=== PATIENT | female | born 1955 | race Caucasian/White ===

== ENCOUNTER 2020-05-21 09:05 | Outpatient (CLI) | payer MEDICARE, SELFPAY ==
--- NOTE | 2020-05-21 11:30 | NEURO_ITS ---
Impression: # Known diabetic complains of numbness of toes, particularly left big toe. # Fairly normal nerve conduction studies except left superficial peroneal nerve absent response. # Normal needle/EMG exam. # Clinical correlation recommended. Nerve Conduction Studies Anti Sensory Summary Table Stim Site NR Peak (ms) P-T Amp (?V) Site1 Site2 Delta-P (ms) Dist (cm) Jose (m/s) Left Sup Fibular Anti Sensory (Ant Lat Mall) NO RESPONSE 14 cm NR 14 cm Ant Lat Mall 16.0 Right Sup Fibular Anti Sensory (Ant Lat Mall) 14 cm 3.6 6.6 14 cm Ant Lat Mall 3.6 16.0 44 Left Sural Anti Sensory (Lat Mall) Calf 3.9 11.9 Calf Lat Mall 3.9 16.0 41 Right Sural Anti Sensory (Lat Mall) Calf 4.0 5.5 Calf Lat Mall 4.0 16.0 40 Motor Summary Table Stim Site NR Onset (ms) O-P Amp (mV) Site1 Site2 Delta-0 (ms) Dist (cm) Jose (m/s) Left Peroneal Motor (Vastus Med) Ankle 4.0 3.0 Popit Ankle 8.9 39.0 44 Popit 12.9 3.2 Right Peroneal Motor (Vastus Med) Ankle 4.0 4.2 Popit Ankle 8.7 38.0 44 Popit 12.7 3.8 Left Tibial Motor (Abd Lott Brev) Ankle 4.5 2.0 Knee Ankle 9.3 42.0 45 Knee 13.8 1.4 Right Tibial Motor (Abd Lott Brev) Ankle 4.3 7.3 Knee Ankle 10.5 42.0 40 Knee 14.8 5.1 F Wave Studies NR F-Lat (ms) L-R F-Lat (ms) Left Peroneal (Mrkrs) (EDB) 52.18 0.59 Right Peroneal (Mrkrs) (EDB) 52.77 0.59 Left Tibial (Mrkrs) (Abd Hallucis) 53.72 0.15 Right Tibial (Mrkrs) (Abd Hallucis) 53.57 0.15 EMG Side Muscle Nerve Root Ins Act Fibs Amp Dur Recrt Comment Right AntTibialis Dp Br Fibular L4-5 Nml Nml Nml Nml Nml Right Gastroc Tibial S1-2 Nml Nml Nml Nml Nml Right Fibularis Long Sup Br Fibular L5-S1 Nml Nml Nml Nml Nml Right Flex Dig Long Tibial L5-S2 Nml Nml Nml Nml Nml Right Ext Dig Brev Dp Br Fibular L5, S1 Nml Nml Nml Nml Nml Left AntTibialis Dp Br Fibular L4-5 Nml Nml Nml Nml Nml Left Gastroc Tibial S1-2 Nml Nml Nml Nml Nml Left Fibularis Long Sup Br Fibular L5-S1 Nml Nml Nml Nml Nml Left Flex Dig Long Tibial L5-S2 Nml Nml Nml Nml Nml Left Ext Dig Brev Dp Br Fibular L5, S1 Nml Nml Nml Nml Nml MTDD
== END 2020-05-21 09:06 | disposition home or self-care (01) ==
PROVIDERS: PCP Internal Medicine; Visit Provider Internal Medicine
DX: R20.2 Paresthesia of skin (principal)
CPT/HCPCS: 95886; 95910

== ENCOUNTER 2020-06-18 12:10 | Emergency (ER) | payer MEDICARE, SELFPAY ==
--- NOTE | ~2020-06-18 | XR_ITS ---
XR chest 2V DATE: 06/18/2020 12:46 INDICATION: Chest pain TECHNIQUE: AP and lateral views COMPARISON: 05/01/2017 two-view chest FINDINGS: Normal heart size. Mild aortic unfolding. No hilar or mediastinal enlargement. Moderate bilateral hyperinflation. No pulmonary infiltrate or consolidation,, pleural effusion or pul monary vascular congestion or pneumothorax. Osteopenia. Calcification overlying right upper quadrant suggests possible cholelithiasis. IMPRESSION: Bilateral hyperinflation; no active pulmonary disease Suspected cholelithiasis Diffuse osteopenia Reviewed, dictated and finalized at location [facility]. N RESOURCES INTERN
--- NOTE | ~2020-06-18 | CT_ITS ---
EXAMINATION: CT abdomen pelvis w con DATE: 06/18/2020 13:29 INDICATION: Epigastric and right upper quadrant abdominal pain TECHNIQUE: Computed tomography (CT) of the abdomen and pelvis was performed with 100 cc Omnipaque 350 intravenous contrast. Automated exposure control and iterative reconstruction technique were employe d. Exam dose: 351.69 mGy-cm total exam DLP. COMPARISON: None. FINDINGS: Bilateral fat-containing foramen of Bochdalek hernias. Calcified middle lobe pulmonary gran uloma. Normal heart size. There is trace pericardial fluid. No pleural effusion. Cholelithiasis. No bile duct or pancreatic duct dilatation. No hepatic, splenic, pancreatic, adrenal space-occupying mass lesion. 7 mm upper pole right renal cyst. Status post left nephrectomy. Normal caliber of the abdominal aorta. No intraperitoneal or retroperitoneal or pelvic mass lesion or adenopathy or ascites. Status post hysterectomy. The urinary bladder is unremarkable. There is a prominent amount of fecal material in the colon. No bowel obstruction, bowel wall thickeni ng, pneumatosis or intraperitoneal free air. Very small fat-containing umbilical hernia. Moderate degenerative disease at L5-S1. No suspicious osteolytic or osteoblastic lesions. IMPRESSION: Cholelithiasis 7 mm upper pole right renal cyst Status post left nephrectomy Status post hysterectomy Reviewed, dictated and finalized at [facility]. Reviewed, dictated and finalized at location [facility]. 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
--- NOTE | 2020-06-18 12:15 | ED.CHESTPAIN ---
HPI - Chest Pain General Chief Complaint: Chest Pain Stated Complaint: CP/DIZZINESS Time Seen by Provider: 06/18/20 12:15 History of Present Illness HPI narrative: 64 yo female w/ h/o palpitations, anxiety, GERD presents to the ED for chest pain. She reports 3 recent episodes of pain radiating from the epigastrium to the neck. Associated with mid SOB. each of the previous 2 episodes ended spontaneously after about 10 minutes. She has not tried anything for her symptoms. On my evaluation pain had significantly improved and actually resolved while I was obtaining her history. She does report abnormally high stress level recently. Related Data Home Medications Medication Instructions Recorded Confirmed alprazolam 0.25 mg tablet 0.25 mg PO DAILY 06/25/19 03/11/20 fluoxetine 10 mg capsule 10 mg PO DAILY 06/25/19 03/11/20 trazodone 100 mg tablet mg PO 06/25/19 03/11/20 triamterene 37.5 1 tablet PO QAM 03/11/20 03/11/20 mg-hydrochlorothiazide 25 mg tablet Allergies Allergy/AdvReac Type Severity Reaction Status Date / Time latex Allergy Unknown Rash Verified 06/18/20 12:21 morphine Allergy Unknown unknown Verified 06/18/20 12:21 Review of Systems Review of Systems: All systems reviewed & are unremarkable except as noted in HPI and below Constitutional: Constitutional: Denies chills Eyes: Eyes: Reports no additional eye complaints ENT: Reports system reviewed and no additional complaints, except as documented Cardiovascular: Cardiovascular: Reports chest pain and Reports dyspnea Respiratory: Respiratory: Denies cough and Reports dyspnea Gastrointestinal: Gastrointestinal: Denies nausea and Denies vomiting Musculoskeletal: Musculoskeletal: Denies back pain Neurologic: Reports dizziness and Reports tingling Psychiatric: Psychiatric: Reports anxiety PMFSH Past Medical History Medical History (Updated 06/18/20 @ 14:15 by Connor Hall MD) Depression Type 2 diabetes mellitus Surgical History Surgical History H/O bilateral breast reduction surgery H/O hand surgery History of appendectomy History of nephrectomy Hx of tonsillectomy Family History Family History Father Acute myocardial infarction Cancer Mother Family history of malignant neoplasm of breast in first degree relative Sibling Cancer Other Family history of arthritis Family history of malignant neoplasm Family history of mental disorder Hypertension Social History Social History Smoking status: Never smoker Alcohol intake: never Gender identity (if verbalized by the patient): Female Exam Const: General: healthy appearing, no acute distress and alert Orientation/consciousness: patient oriented x3 HENMT: Head: normal to inspection Neck: Neck: normal visual inspection and no lymphadenopathy Chest: Chest palpation & inspection: no tenderness Resp: Effort & Inspection: normal respiratory effort Auscultation: clear to auscultation bilaterally, no rales, no rhonchi and no wheezes Cardio: Jugular venous distension: no JVD Rate: regular rate Rhythm: regular rhythm Heart sounds: no murmurs GI: Inspection: non-distended GI Palp: Yes Soft to palpation and No Tenderness to palpation present (GI) Skin: General skin exam: normal color Neuro: General: patient oriented x3 and moves all extremities Cranial nerves: Yes CN's II-XII intact bilaterally Speech: normal speech Other: tremor Extrem: General: normal to inspection and no edema Psych: Appearance: well kempt Affect: Anxious affect present Course Vital Signs Vital signs: Vital Signs Temperature 36.4 C 06/18/20 12:16 Pulse Rate 92 06/18/20 12:16 Respiratory Rate 18 06/18/20 12:16 Blood Pressure 147/102 H 06/18/20 12:16 Pulse Oximetry 97 06/18/20 12:16 Temperature
[2020-06-18 12:16] VITALS: BP 147/102; PULSE 92; RESP 18; TEMP 36.4; O2SAT 97
--- NOTE | 2020-06-18 12:16 | ECG_ITS ---
Measurements Intervals [place] Rate: 84 P: 67 [place]: 144 QRS: 6 QRSD: 90 T: -41 QT: 391 QTc: 465 Interpretive Statements SINUS RHYTHM INCOMPLETE RIGHT BUNDLE BRANCH BLOCK ST-T WAVE ABNORMALITY IN IN ANT/INF LEADS- CONSIDER ISCHEMIA BASELINE ARTIFACT- I, II, AVR, AVL, AVF, V1-V6 ABNORMAL ECG Electronically Signed On 06-18-2020 12:43:50 EAR SPECIALIST by Mann Obrien D.O.
[2020-06-18 12:20] VITALS: O2SAT 97
[2020-06-18 12:28] LABS: Basophils Percent Auto 0.4 % (0.2-1.2); Eosinophils Absolute Auto 0.1 K/mm3 (0-0.3); Eosinophils Percent Auto 1.7 % (0-4.4); Hematocrit 42.8 % (37.0-47.0); Hemoglobin 14.9 g/dL (12.0-15.0); Immature Granulocyte Absolute 0.01 K/mm3 (0.00-0.031); Immature Granulocyte Percent A 0.1 % (0-0.5); Lymphocytes Absolute Auto 2.48 K/mm3 (0.9-3.2); Lymphocytes Percent Auto 34.8 % (18.3-44.2); Mean Corpuscular HGB Conc 34.8 g/dl (32-36); Mean Corpuscular Hemoglobin 30.2 pg (26-34); Mean Corpuscular Volume 86.6 fl (80-100); Mean Platelet Volume 8.2 fl (7.4-10.4); Monocytes Absolute Auto 0.6 K/mm3 (0.1-0.6); Monocytes Percent Auto 7.7 % (2.6-8.5); Neutrophils Absolute Auto 3.9 K/mm3 (1.3-6.7); Neutrophils Percent Auto 55.3 % (45.5-73.1); Platelet Count Result 217 k/mm3 (150-375); Red Blood Count 4.94 M/mm3 (4.2-5.4); Red Cell Distribution Width 11.8 % (11.5-14.5); White Blood Count 7.1 K/mm3 (4.5-10.0)
[2020-06-18 12:41] LABS: INR 0.9; Prothrombin Time 12.7 Seconds (11.1-14.7)
[2020-06-18 12:42] LABS: Anion Gap 14 mmol/L (8-16); Blood Urea Nitrogen 22 mg/dL (7-17); Calcium 9.5 mg/dL (8.4-10.2); Carbon Dioxide 25 mmol/L (22-30); Chloride 98 mmol/L (98-107); Estimated CRCL calculation 39 ml/min; Estimated Glomerular Filt Rate 50; Glucose 100 mg/dL (65-105); Partial Thromboplastin Time 24.9 SECONDS (22.3-36.8); Potassium 3.6 mmol/L (3.4-5.0); Sodium 137 mmol/L (137-145)
[2020-06-18 12:48] VITALS: PULSE 94
[2020-06-18] MEDS: LORazepam INJ (*CRX) 2 MG/ML VIAL 0.5 MG IV PUSH (12:48)
[2020-06-18 12:49] VITALS: BP 145/103; PULSE 91; RESP 14; O2SAT 98
--- NOTE | 2020-06-18 12:51 | ECG_ITS ---
Measurements Intervals [place] Rate: 69 P: 33 [place]: 159 QRS: -18 QRSD: 91 T: -12 QT: 429 QTc: 460 Interpretive Statements SINUS RHYTHM INCOMPLETE RIGHT BUNDLE BRANCH BLOCK ST-T WAVE ABNORMALITY IN ANTERIOR LEADS- CONSIDER ISCHEMIA ABNORMAL ECG Electronically Signed On 06-18-2020 13:57:21 [employer] by Mann Obrien D.O.
[2020-06-18 12:54] LABS: Troponin I < 0.012 ng/mL (0.000-0.034)
[2020-06-18 13:37] LABS: Alanine Aminotransferase 26 U/L (4-35); Albumin Level 4.5 g/dL (3.5-5.1); Alkaline Phosphatase 73 U/L (38-126); Aspartate Amino Transferase 39 U/L (14-36); Bilirubin,Total 0.8 mg/dL (0.2-1.3)
[2020-06-18 14:42] VITALS: BP 165/96
== END 2020-06-18 14:43 | disposition home or self-care (01) ==
PROVIDERS: Emergency Provider Emergency Medicine; PCP Internal Medicine
DX: K80.20 Calculus of gallbladder without cholecystitis without obstruction (principal); R07.89 Other chest pain; F32.9 Major depressive disorder, single episode, unspecified; E11.9 Type 2 diabetes mellitus without complications; Z90.5 Acquired absence of kidney; F41.9 Anxiety disorder, unspecified; K21.9 Gastro-esophageal reflux disease without esophagitis
CPT/HCPCS: 36415; 71046; 74177; 80048; 80076; 84484; 85025; 85610; 85730; 93005; 96374; 99284; J2060; Q9967

== ENCOUNTER 2020-06-25 14:01 | Outpatient (CLI) | payer MEDICARE, SELFPAY ==
[2020-06-25 14:36] LABS: Alanine Aminotransferase 16 U/L (4-35); Albumin Level 4.3 g/dL (3.5-5.1); Alkaline Phosphatase 59 U/L (38-126); Amylase 64 U/L (30-110); Aspartate Amino Transferase 25 U/L (14-36); Bilirubin,Total 0.2 mg/dL (0.2-1.3); Lipase 326 U/L (23-300)
== END 2020-06-25 14:02 | disposition home or self-care (01) ==
LOC: ANHSURGERY 14:03
PROVIDERS: PCP Internal Medicine; Visit Provider Surgery
DX: Z01.818 Encounter for other preprocedural examination (principal); K80.10 Calculus of gallbladder with chronic cholecystitis without obstruction
CPT/HCPCS: 36415; 80076; 82150; 83690; 86850; 86900; 86901

== ENCOUNTER 2020-06-26 00:33 | Outpatient (CLI) | payer MEDICARE, SELFPAY ==
[2020-06-26 18:46] LABS: SARS-CoV-2 RNA PCR Negative
== END 2020-06-26 00:34 | disposition home or self-care (01) ==
LOC: ANHCOVIDDT 00:33
PROVIDERS: PCP Internal Medicine; Visit Provider Surgery
DX: Z01.812 Encounter for preprocedural laboratory examination (principal); Z20.822 Contact with and (suspected) exposure to COVID-19
CPT/HCPCS: C9803; U0003; U0005

== ENCOUNTER 2020-06-29 02:06 | Day surgery (SDC) | payer MEDICARE, SELFPAY ==
[2020-06-25 13:03] VITALS: BMI 24.2
[2020-06-29] VITALS (11 sets, daily range): BP systolic 133–165; BP diastolic 74–99; PULSE 52–70; RESP 13–18; TEMP 36.4–36.6; O2SAT 97–100
[2020-06-29] MEDS: ACETAMINOPHEN 500 MG TABLET 1000 MG PO (06:38)
[2020-06-29] MEDS: LACTATED RINGERS 1,000 ML 30 ML IV CONT (06:57)
[2020-06-29] MEDS: KETOROLAC 15 MG/ML VIAL (*BKC) IV PUSH (06:58)
--- NOTE | 2020-06-29 07:06 | WPDANESEPPF ---
Anes - Initial Pre Proc Eval Procedure: Operation Date: 06/29/20 07:30 Proposed Procedures p Laparoscopic Cholecystectomy, Possible Open - Gabriela Bass MD Date/Time: 06/29/20 07:06 Surgeon: Gabriela Bass MD Pre Op Diagnosis: Cholecystitis With Stones Patient Data Age: 64 Gender: F Height: 5 ft 4.5 in Weight: 66.8 kg Last Vital Signs Temp 98 F 06/29/20 06:23 Pulse 70 06/29/20 06:23 Resp 14 06/29/20 06:23 BP 133/74 06/29/20 06:23 Pulse Ox 97 06/29/20 06:23 Allergies Allergy/AdvReac Type Severity Reaction Status Date / Time latex Allergy Unknown Rash/trouble Verified 06/29/20 06:40 breathing morphine Allergy Unknown Rash Verified 06/29/20 06:40 Home Medications Medication Instructions Recorded Confirmed Type trazodone 100 mg tablet 200 mg PO HS 06/25/19 06/29/20 History triamterene 37.5 1 tablet PO QAM 03/11/20 06/29/20 History mg-hydrochlorothiazide 25 mg tablet alprazolam 0.5 mg PO BID PRN 06/25/20 06/29/20 History aspirin [Aspir-81] 81 mg PO HS 06/25/20 06/29/20 History calcium 1,200 mg PO DAILY 06/25/20 06/29/20 History cholecalciferol (vitamin D3) 25 mcg PO DAILY 06/25/20 06/29/20 History [Vitamin D3] fluoxetine 20 mg PO HS 06/25/20 06/29/20 History gabapentin 600 mg PO BID 06/25/20 06/29/20 History acnghypebywp-Zu-oldk-minerals 1 tablet PO DAILY 06/25/20 06/29/20 History [Multiple Vitamin, Womens] naltrexone 50 mg PO HS 06/25/20 06/29/20 History pantoprazole 40 mg PO HS 06/25/20 06/29/20 History pravastatin 40 mg PO QAM 06/25/20 06/25/20 History Patient hx anesthesia problems: none Family hx anesthesia problems: none PMFSH Past Medical History Medical History (Updated 06/29/20 @ 07:06 by Juanjo Marsh MD) Anxiety Asthma Depression Dyslipidemia Essential (primary) hypertension GERD (gastroesophageal reflux disease) Type 2 diabetes mellitus Surgical History Surgical History H/O bilateral breast reduction surgery H/O hand surgery History of appendectomy History of nephrectomy Hx of tonsillectomy Family History Family History Father Acute myocardial infarction Cancer Mother Family history of malignant neoplasm of breast in first degree relative Sibling Cancer Other Family history of arthritis Family history of malignant neoplasm Family history of mental disorder Hypertension Social History Social History Smoking status: Never smoker Alcohol intake: never Alcohol use details: DRANK SMALL AMTS YEARS AGO Substance use: never Living arrangements: with family Additional living arrangements comments: Gender identity (if verbalized by the patient): Female Spiritual care concerns: No Anes - Eval Final PreProcedure Day of Procedure 06/29/20 07:06 Patient weight: normal Heart: regular rate and rhythm Lungs: clear to auscultation Airway: Mallampati scale class II Neurological: alert and oriented Last oral intake: >/= 8 hours ASA classification: III Emergent: no Anesthetic plan: proceed Anesthesia type and monitoring: general GIVS and standard monitoring Informed Consent: The patient's anesthetic plan and its attendant risks and benefits were discussed with the patient/family/POA. Questions were solicited and answers provided to the satisfaction of the patient/family/POA.
--- NOTE | 2020-06-29 07:13 | WPDHPUPDATE1 ---
History and Physical Update Update Date/Time: 06/29/20 07:13 History and Physical has been reviewed, including an updated exam of the patient. There are NO changes in the patient's condition. Risks, benefits, and alternatives have been discussed and questions answered. Patient agrees to proceed with procedure.
[2020-06-29] MEDS: ceFAZolin 2 GM/D5W 50 ML 2 GM/50 ML BAG IVPB (07:18)
[2020-06-29] MEDS: BUPIVACAINE HCL 0.5% PF 30 ML VIAL INFILTRATE (07:41)
--- NOTE | 2020-06-29 08:14 | P.OP_ITS ---
Procedure Note - Detailed Date of procedure: 06/29/20 Pre-op diagnosis: Cholecystitis With Stones Post-op diagnosis: same Procedure performed: laparoscopic cholecystectomy Description of procedure: The patient was taken to the operating room placed in the supine position. After adequate induction of general anesthesia, the patient was prepped and draped in normal sterile fashion. A time-out was then performed to verify the patient's identity as well as the procedure being performed. I then made a 5 mm incision in the infraumbilical region. Through this, a Veress needle was placed into the peritoneal cavity and CO2 gas was then insufflated. After adequate pneumoperitoneum was achieved, the Veress needle was removed and a 5 mm trocar was placed through this incision. I then placed the laparoscope through this trocar site and under direct visualization placed a further 12 mm subxiphoid port as well as 2 additional 5 mm ports in the right upper abdomen. The gallbladder was then identified and was noted to be slightly inflamed. I was able to place a grasper at the dome of the gallbladder and this was retracted anterior and cephalad up over the liver. A 2nd retractor was then placed at the infundibulum and retracted laterally, this allowed visualization of the triangle of Calot. I then was able to visualize the cystic duct in its entirety from its proximal insertion into the gallbladder, to its distal junction with the common hepatic/common bile duct junction. At this point, I carefully skeletonized the proximal cystic duct with the [place] dissector. I then clipped and transected the proximal cystic duct. Next I visualized the cystic artery. Again the artery was skeletonized, clipped, and transected. I then used the Bovie cautery to take down the peritoneal attachments of the gallbladder off the liver bed. Once the gallbladder specimen was completely detached, an endo-pouch was placed through the 12 mm port site. I then placed the gallbladder specimen into the Endo pouch and removed the endo-pouch from the 12 mm port site. The specimen will now be sent to pathology for further review. I then copiously irrigated the right upper quadrant. Hemostasis was noted in the liver bed, the clips were noted to be in good position on both the cystic duct stump and the cystic artery stump. No other pathology was noted in the right upper quadrant. I then moved the laparoscope to the subxiphoid port. No iatrogenic injury or other pathology was noted in the lower abdomen. At this point, the abdomen was desufflated and all ports removed. The fascia of the 12 mm subxiphoid port was closed with a 0 Vicryl figure of 8 suture. All port sites were then closed with 4.O Monocryl subcuticular sutures. Dermabond was placed on each incision. The patient tolerated the procedure well, was extubate d in the operating room postoperative and will be transferred to the recovery room in stable condition. Implants: none Anesthesia: GETA Surgeon: Gabriela Bass MD Estimated blood loss (mL): 5 Drains: No Packing: No Pathology: yes Complications: No immediate complications Condition: stable Disposition: PACU Findings: chronic cholecystitis
[2020-06-29] MEDS: fentaNYL CITRATE INJ (*CRX) 100 MCG/2 ML VIAL 25 MCG IV PUSH ×5 (09:00→09:30)
--- NOTE | 2020-06-29 09:27 | SUR.PHASEI ---
PT AWAKE, RESTING QUIETLY. OCCASIONAL GRIMACE. STATES PAIN REMAINS 5/10.
--- NOTE | 2020-06-29 09:47 | SUR.PHASEI ---
PT AWAKE AND ALERT. STATES FEELS BETTER NOW.
[2020-06-29 09:49] LABS: Glucose Point of Care 114 (65-105)
== END 2020-06-29 10:45 | disposition home or self-care (01) ==
PROVIDERS: PCP Internal Medicine; Visit Provider Surgery
PROC: 0FT44ZZ Resection of Gallbladder, Percutaneous Endoscopic Approach (ICD-10-PCS; CPT 47562; principal; 2020-06-29 07:30)
DX: K80.10 Calculus of gallbladder with chronic cholecystitis without obstruction (principal); Z79.82 Long term (current) use of aspirin; F41.9 Anxiety disorder, unspecified; J45.909 Unspecified asthma, uncomplicated; E78.5 Hyperlipidemia, unspecified; I10 Essential (primary) hypertension; K21.9 Gastro-esophageal reflux disease without esophagitis; E11.9 Type 2 diabetes mellitus without complications
CPT/HCPCS: 47562; 36415; 80076; 82150; 83690; 86850; 86900; 86901; 88304; A9270; C9803; J0690; J1100; J1885; J2405; J2704; J2710; J3010; J7030; J7120; U0003; U0005

== ENCOUNTER → 2020-07-14 14:27 | Outpatient (REF) | payer MEDICARE, SELFPAY | LOC: ANHLAB 14:27 | PROVIDERS: PCP Internal Medicine; Visit Provider Nurse Practitioner | DX: L57.0 Actinic keratosis (principal) | CPT/HCPCS: 88305 ==

== ENCOUNTER → 2020-08-25 15:17 | Outpatient (REF) | payer MEDICARE, SELFPAY | LOC: ANHLAB 15:17 | PROVIDERS: PCP Internal Medicine; Visit Provider Nurse Practitioner | DX: D49.2 Neoplasm of unspecified behavior of bone, soft tissue, and skin (principal) | CPT/HCPCS: 88305 ==

== ENCOUNTER → 2020-11-25 12:01 | Outpatient (CLI) | payer MEDICARE, SELFPAY ==
--- NOTE | ~2020-11-25 | DEXA_ITS ---
Bone Density Report Name: Gaviota Johnson Age: 65 Sex: Female Ethnicity: White Date of : 1955 Indication: osteopenia; height loss; asthma or emphysema; hysterectomy; postmenopausal Referring Provider: Cb, Deb Study: Bone densitometry was performed. Exam Date: November 25, 2020 Accession number: [id number] Bone Density: Region BMD T-score Z-score Classification AP Spine (L1-L4) 0.905 -1.3 0.6 Osteopenia Femoral Neck (Left) 0.722 -1.1 0.4 Osteopenia Total Hip (Left) 0.811 -1.1 0.2 Osteopenia Femoral Neck (Right) 0.697 -1.4 0.2 Osteopenia Total Hip (Right) 0.801 -1.2 0.1 Osteopenia Total Hip Mean 0.806 -1.2 0.2 Osteopenia World Health Organization criteria for BMD impression classify patients as: Normal (T-score at or above -1.0), Osteopenia (T-score between -1.0 and -2.5), or Osteoporosis (T-score at or below -2.5). 10-year Fracture Risk(1): Major Osteoporotic Fracture 8.8% Hip Fracture 0.9% Reported Risk Factors: [place] (), Neck BMD=0.697, BMI=26.5 (1) FRAX(R) Version 3.08. Fracture probability calculated for an untreated patient. Fracture probability may be lower if the patient has received treatment. Previous Exams: Region Exam Age BMD T-score BMD Change BMD Change Date g/cm2 vs Baseline vs Previous AP Spine(L1-L4) 11/25/2020 65 0.905 -1.3 -0.071* 0.013 11/21/2017 62 0.892 -1.4 -0.084* -0.086* 02/28/2014 58 0.978 -0.6 0.002 0.003 01/18/2010 54 0.975 -0.7 0.000 0.000 05/17/2007 51 0.976 -0.6 Total Hip(Left) 11/25/2020 65 0.811 -1.1 -0.052* -0.021 11/21/2017 62 0.832 -0.9 -0.031* -0.124* 02/28/2014 58 0.956 0.1 0.093* 0.114* 01/18/2010 54 0.842 -0.8 -0.021 -0.021 05/17/2007 51 0.862 -0.7 Total Hip(Right) 11/25/2020 65 0.801 -1.2 -0.091* -0.015 11/21/2017 62 0.816 -1.0 -0.075* -0.092* 02/28/2014 58 0.909 -0.3 0.017 0.030* 01/18/2010 54 0.878 -0.5 -0.013 -0.013 05/17/2007 51 0.892 -0.4 *Denotes significance at 95% confidence level, LSC for AP Spine = 0.022 g/cm2, LSC for Total Hip = 0.027 g/cm2 Clinical Information Provided by Patient: Has used the following medications: Vitamin D, Calcium, MTV Has the following medical conditions: Asthma or Emphysema, Hysterectomy Patient jessi
--- NOTE | ~2020-11-25 | MM_ITS ---
EXAMINATION: MM screening [facility] BI w [facility] HISTORY: Screening mammogram, family history of breast cancer in her mother and sister. TECHNIQUE: Craniocaudal and mediolateral oblique 3-D tomosynthesis images were obtained and synthetic 2-D images were generated. CAD analysis was submitted and interpreted. COMPARISON: 12/17/2018, 11/21/2017, 10/24/2016 BREAST PARENCHYMAL COMPOSITION: There are scattered areas of fibroglandular density. FINDINGS: Again noted is dystrophic calcification in the breasts related to prior reduction mammoplas ty. There is no evidence of suspicious mass, calcification, or architectural distortion to suggest ma lignancy in either breast. There has been no suspicious interval change. IMPRESSION: 1. No mammographic evidence of malignancy. 2. Recommend routine screening mammography in one year. BI-RADS Category 2: Benign finding(s). Reviewed, dictated and finalized at location A.
== END ==
PROVIDERS: PCP Internal Medicine; Visit Provider Nurse Practitioner
DX: Z12.31 Encounter for screening mammogram for malignant neoplasm of breast (principal); M85.88 Other specified disorders of bone density and structure, other site; M85.852 Other specified disorders of bone density and structure, left thigh; M85.851 Other specified disorders of bone density and structure, right thigh
CPT/HCPCS: 77063; 77067; 77080

== ENCOUNTER 2021-04-12 07:07 | Emergency (ER) | payer MEDICARE, SELFPAY ==
[2021-04-12 07:15] VITALS: BP 165/104; PULSE 79; RESP 16; TEMP 36.3; O2SAT 100
--- NOTE | 2021-04-12 08:07 | ED.BACK ---
HPI - Back Pain/Injury General Chief Complaint: Back Pain/Injury Stated Complaint: Back Injury Time Seen by Provider: 04/12/21 08:03 Source: patient Mode of arrival: ambulatory Limitations: no limitations History of Present Illness HPI Narrative: Patient is a 65-year-old female with history of hypertension, type 2 diabetes, solitary kidney, presenting for evaluation of lower back pain. Patient states that she was lifting heavy pots over the weekend with onset of pain yesterday. Patient states that she remember lifting a very heavy pot with acute onset lower back pain as if she had pulled a muscle. Patient denies urinary or fecal incontinence. No saddle anesthesia. No fall. Patient denies any midline pain. States that she has pain in both of the sides of her lower back. She denies fever, chills, nausea or vomiting. She has taken some ibuprofen with minimal improvement in her symptoms. Patient has been ambulatory although it is difficult because when she stands up straight her pain is exacerbated. She denies any history of osteoporosis. No history of vertebral fracture or compression fractures. She denies any history of cancer in herself. Pain is exacerbated with movement. No neck pain. Related Data Home Medications Medication Instructions Recorded Confirmed triamterene 37.5 1 tablet PO QAM 03/11/20 04/06/21 mg-hydrochlorothiazide 25 mg tablet Multiple Vitamin, Womens 1 tablet PO DAILY 06/25/20 04/06/21 alprazolam 0.5 mg PO BID PRN 06/25/20 04/06/21 aspirin 81 mg PO HS 06/25/20 04/06/21 calcium 1,200 mg PO DAILY 06/25/20 04/06/21 cholecalciferol (vitamin D3) 25 mcg PO DAILY 06/25/20 04/06/21 [Vitamin D3] fluoxetine 20 mg PO HS 06/25/20 04/06/21 naltrexone 50 mg PO HS 06/25/20 04/06/21 trazodone 100 mg tablet 100 mg PO HS tablet 09/30/20 04/06/21 ramelteon 8 mg tablet tablet PO 04/06/21 04/06/21 Allergies Allergy/AdvReac Type Severity Reaction Status Date / Time latex Allergy Mild Rash/trouble Verified 04/06/21 14:36 breathing morphine Allergy Mild Rash Verified 04/06/21 14:36 Review of Systems Review of Systems: CONSTITUTIONAL: Denies fever CARDIOVASCULAR: Denies chest pain RESPIRATORY: Denies cough or dyspnea. GASTROINTESTINAL: Denies abdominal pain SKIN: Denies rash MUSCULOSKELETAL: Reports back pain, denies midline pain, denies lower extremity numbness or weakness NEUROLOGIC: Denies headache [facility] Past Medical History Medical History Anxiety Asthma Depression Dyslipidemia Essential (primary) hypertension GERD (gastroesophageal reflux disease) Type 2 diabetes mellitus Type 2 diabetes mellitus with diabetic polyneuropathy, without long-term current use of insulin Surgical History Surgical History H/O bilateral breast reduction surgery H/O hand surgery History of appendectomy History of cholecystectomy 2020 History of nephrectomy Hx laparoscopic cholecystectomy 06/29/20 Hx of tonsillectomy Family History Family History Father Acute myocardial infarction Cancer Mother Family history of malignant neoplasm of breast in first degree relative Sibling Cancer Other Family history of arthritis Family history of malignant neoplasm Family history of mental disorder Hypertension Social History Social History Smoking status: Never smoker Second hand tobacco smoke exposure: No Alcohol intake: never Alcohol use details: DRANK SMALL AMTS YEARS AGO Substance use: never Substance use type: does not use Additional living arrangements comments: Gender identity (if verbalized by the patient): Female Sexual Orientation (if Verbalized by the Patient): Straight or Heterosexual Spiritual care concerns: No Exam Narrative: GENERAL: Aw
[2021-04-12] MEDS: predniSONE 20 MG TABLET 60 MG PO (08:11)
[2021-04-12] MEDS: ACETAMINOPHEN 500 MG TABLET 1000 MG PO (08:11)
[2021-04-12] MEDS: diazePAM (*CRX) 5 MG TABLET PO (08:11)
[2021-04-12] MEDS: LIDOCAINE 5% PATCH 1 PATCH TRANSDERM (08:35)
[2021-04-12 09:29] VITALS: BP 157/100; PULSE 69; RESP 18; O2SAT 98
== END 2021-04-12 09:38 | disposition home or self-care (01) ==
PROVIDERS: Emergency Provider Emergency Medicine; PCP Internal Medicine
DX: S39.012A Strain of muscle, fascia and tendon of lower back, initial encounter (principal); S29.012A Strain of muscle and tendon of back wall of thorax, initial encounter; I10 Essential (primary) hypertension; E11.42 Type 2 diabetes mellitus with diabetic polyneuropathy; J45.909 Unspecified asthma, uncomplicated; E78.5 Hyperlipidemia, unspecified; K21.9 Gastro-esophageal reflux disease without esophagitis; F41.9 Anxiety disorder, unspecified; Z79.82 Long term (current) use of aspirin; Z90.5 Acquired absence of kidney; X50.0XXA Overexertion from strenuous movement or load, initial encounter
CPT/HCPCS: 99283; A9270; J7512

== ENCOUNTER → 2021-12-07 12:50 | Outpatient (CLI) | payer MEDICARE, SELFPAY ==
--- NOTE | ~2021-12-07 | MM_ITS ---
EXAMINATION: MM screening [facility] BI w roma HISTORY: Screening TECHNIQUE: Craniocaudal and mediolateral oblique 3-D tomosynthesis images were obtained and synthetic 2-D images were generated. CAD analysis was submitted and interpreted. COMPARISON: Comparison to multiple prior studies sequentially, with oldest reviewed study dated 03/12. BREAST PARENCHYMAL COMPOSITION: There are scattered areas of fibroglandular density. FINDINGS: There are benign bilateral breast calcifications, likely due to fat necrosis from previous breast reduction surgery. There is no evidence of suspicious mass, calcification, or architectural di stortion to suggest malignancy in either breast. There has been no suspicious interval change. IMPRESSION: 1. No mammographic evidence of malignancy. 2. Recommend routine screening mammography in one year. BI-RADS Category 2: Benign finding(s). Reviewed, dictated and finalized at location A.
== END ==
PROVIDERS: PCP Internal Medicine; Visit Provider Nurse Practitioner
DX: Z12.31 Encounter for screening mammogram for malignant neoplasm of breast (principal)
CPT/HCPCS: 77063; 77067

== ENCOUNTER 2022-04-28 15:57 | Emergency (ER) | payer MEDICARE, SELFPAY ==
--- NOTE | 2022-04-28 16:14 | ED.SKABFB ---
HPI - Skin/Abscess/Foreign Bdy General Chief complaint: Allergic Reaction Stated complaint: reaction to immunization in lt arm Time Seen by Provider: 04/28/22 16:14 Source: patient, RN notes reviewed and old records reviewed Mode of arrival: ambulatory Limitations: no limitations History of Present Illness HPI narrative: 66 year old female who presents to express care with complaints of increasing redness to her left upper arm since receiving immunization of Covid and pneumonia shot on Monday 2 days ago.Patient reports that on Monday there was redness around they injections area but today redness is all around her upper arm extending to her elbow. No acute swelling of left upper arm or warmth or rash noted. Patient reports that she has been applying ice and taking Tylenol. MD complaint: other (redness to left upper arm extending to elbow) Onset (ago): day(s) (2) Location: [facility] Treatments prior to arrival: other (ice and Tylenol) Related Data Home Medications Medication Instructions Recorded Confirmed triamterene 37.5 1 tablet PO QAM 03/11/20 04/28/22 mg-hydrochlorothiazide 25 mg tablet alprazolam 0.5 mg tablet 0.5 mg PO BID PRN Anxiety 06/25/20 04/28/22 aspirin 81 mg tablet,delayed 81 mg PO HS 06/25/20 04/28/22 release calcium 600 mg capsule 1,200 mg PO DAILY 06/25/20 04/28/22 cholecalciferol (vitamin D3) 25 25 mcg PO DAILY 06/25/20 04/28/22 mcg (1,000 unit) tablet (Vitamin D3) fluoxetine 20 mg capsule 20 mg PO HS 06/25/20 04/28/22 xfvdtpnvumel-Qc-oeoo-minerals 1 tablet PO DAILY 06/25/20 04/28/22 (Multiple Vitamin, Womens tablet) naltrexone 50 mg tablet 50 mg PO HS 06/25/20 04/28/22 trazodone 100 mg tablet 100 mg PO HS 09/30/20 04/28/22 ramelteon 8 mg tablet 1 tablet PO DAILY 04/06/21 04/28/22 Allergies Allergy/AdvReac Type Severity Reaction Status Date / Time latex Allergy Mild Rash/trouble Verified 04/28/22 16:14 breathing morphine Allergy Mild Rash Verified 04/28/22 16:14 Review of Systems Review of Systems: CONSTITUTIONAL: Denies fever, chills, or sweats. CARDIOVASCULAR: Denies chest pain, palpitations, or edema. RESPIRATORY: Denies cough or dyspnea. SKIN: Reports redness to left upper arm extending to elbow MUSCULOSKELETAL: Denies joint pain or myalgia. NEUROLOGIC: Denies headache, numbness, or weakness. All systems reviewed & are unremarkable except as noted in HPI and below PMFSH Past Medical History Medical History Anxiety Asthma Depression Dyslipidemia Essential (primary) hypertension GERD (gastroesophageal reflux disease) Type 2 diabetes mellitus Type 2 diabetes mellitus with diabetic polyneuropathy, without long-term current use of insulin Surgical History Surgical History H/O bilateral breast reduction surgery H/O hand surgery History of appendectomy History of cholecystectomy 2020 History of nephrectomy Hx laparoscopic cholecystectomy 06/29/20 Hx of tonsillectomy Family History Family History Father Acute myocardial infarction Cancer Mother Family history of malignant neoplasm of breast in first degree relative Sibling Cancer Other Family history of arthritis Family history of malignant neoplasm Family history of mental disorder Hypertension Social History Social History Second hand tobacco smoke exposure: No Alcohol intake: never Alcohol use details: DRANK SMALL AMTS YEARS AGO Substance use: never Substance use type: does not use Additional living arrangements comments: Gender identity (if verbalized by the patient): Female Sexual Orientation (if Verbalized by the Patient): Straight or Heterosexual Spiritual care concerns: No Comments At time of signature, agree with nursing past medical, surgical, soci
[2022-04-28 16:18] VITALS: BP 139/100; PULSE 92; RESP 16; TEMP 37.3; O2SAT 92
== END 2022-04-28 16:34 | disposition home or self-care (01) ==
PROVIDERS: Emergency Provider Registered Nurse; PCP Internal Medicine
DX: L53.9 Erythematous condition, unspecified (principal); T78.40XA Allergy, unspecified, initial encounter; J45.909 Unspecified asthma, uncomplicated; E78.5 Hyperlipidemia, unspecified; I10 Essential (primary) hypertension; K21.9 Gastro-esophageal reflux disease without esophagitis; E11.42 Type 2 diabetes mellitus with diabetic polyneuropathy; F41.9 Anxiety disorder, unspecified; F32.A Depression, unspecified; Z79.82 Long term (current) use of aspirin; Z90.5 Acquired absence of kidney
CPT/HCPCS: 99213; G0463

== ENCOUNTER 2022-08-22 10:32 | Observation (INO) | payer MEDICARE, SELFPAY ==
[2022-08-22] VITALS (30 sets, daily range): BP systolic 135–168; BP diastolic 79–107; PULSE 63–91; RESP 11–22; TEMP 36.4–36.7; O2SAT 94–100; BMI 28.8
--- NOTE | ~2022-08-22 | XR_ITS ---
EXAMINATION: XR chest 1V portable DATE: 08/22/2022 11:05 INDICATION: Altered mental status. Overdose. TECHNIQUE: A single frontal view of the chest was obtained. COMPARISON: Chest 2 views 06/18/2020, CT abdomen and pelvis FINDINGS: There is mild atelectasis at the lung bases. No pleural effusion or pneumothorax. The heart size is normal. There are surgical clips in the abdomen. IMPRESSION: 1. Mild atelectasis at the lung bases. Reviewed, dictated and finalized at location A.
--- NOTE | 2022-08-22 10:27 | ECG_ITS ---
Measurements Intervals [place] Rate: 75 P: 35 UT: 149 QRS: -9 QRSD: 89 T: 12 QT: 398 QTc: 446 Interpretive Statements SINUS RHYTHM INCOMPLETE RIGHT BUNDLE BRANCH BLOCK NONSPECIFIC ST & T-WAVE ABNORMALITY- DIFFUSE LEADS BASELINE ARTIFACT- I, III BORDERLINE ECG COMPARED TO ECG 06/18/2020 13:50:09 ST-T WAVE ABNORMALITY IMPROVED Electronically Signed On 08-22-2022 12:51:55 CDT by Mann Obrien D.O.
--- NOTE | 2022-08-22 10:37 | ED.GENADULT ---
HPI - General Adult General Chief complaint: Overdose Stated complaint: too much sleeping pills History of Present Illness HPI narrative: 67-year-old female presenting to the emergency department for evaluation after a possible intentional overdose. Patient's mother went to check on the patient and found the patient minimally responsive. This was approximately 1 hour prior to arrival. Patient does state that she took an unknown amount of trazodone and Xanax but patient does not stating the intent of this other than that she wanted to sleep. Patient does not answer directly whether this was suicidal or if she has suicidal ideations. Patient's mother states that the patient has been going through a hard time recently, she states that the patient did lose her to cancer less than 1 year ago and that the patient's daughter and granddaughter is currently being treated for cancer. Care coordination reported that a suicide note was found at scene. Related Data Home Medications Medication Instructions Recorded Confirmed triamterene 37.5 1 tablet PO QAM 03/11/20 08/22/22 mg-hydrochlorothiazide 25 mg tablet alprazolam 0.5 mg tablet 0.5 mg PO BID PRN Anxiety 06/25/20 08/22/22 fluoxetine 20 mg capsule 20 mg PO HS 06/25/20 08/22/22 naltrexone 50 mg tablet 50 mg PO HS 06/25/20 08/22/22 trazodone 100 mg tablet 200 mg PO HS 09/30/20 08/22/22 bupropion HCl 300 mg 24 hr tablet, 300 mg PO DAILY 08/22/22 08/22/22 extended release Allergies Allergy/AdvReac Type Severity Reaction Status Date / Time latex Allergy Mild Rash/trouble Verified 06/15/22 07:24 breathing morphine Allergy Mild Rash Verified 06/15/22 07:24 Review of Systems Review of Systems: All systems reviewed & are unremarkable except as noted in HPI and below PMFSH Past Medical History Medical History (Updated 08/22/22 @ 19:10 by Rizwan Kate MD) Anxiety Asthma Chronic cholecystitis with calculus Depression Dyslipidemia Essential (primary) hypertension GERD (gastroesophageal reflux disease) Kidney donor Skin cancer screening Suicide attempt 2009 Type 2 diabetes mellitus Type 2 diabetes mellitus with diabetic polyneuropathy, without long-term current use of insulin Surgical History Surgical History (Updated 08/22/22 @ 14:19 by Cynthia Mancuso NP) H/O bilateral breast reduction surgery H/O hand surgery H/O: hysterectomy History of appendectomy History of cholecystectomy 2020 History of nephrectomy Donated left 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 She has 3 children, 2 with cancer. She is retired. Code status full code Smoking status: Never smoker Second hand tobacco smoke exposure: No Alcohol intake: never Alcohol use details: DRANK SMALL AMTS YEARS AGO Substance use: never Substance use type: prescription drug Lack of Transportation: No Lack of Food: Never True Current Housing: I Have Housing Concerned About Future Housing: No Difficulty Paying Gas/Electric Bills: No Difficulty Paying for Meds: No Currently Unemployed: No Education: Associate Degree Difficulty w/ Childcare or Family Care: No Living arrangements: with family Additional living arrangements comments: Occupation/Education: retired Gender identity (if verbalized by the patient): Female Sexual Orientation (if Verbalized by the Patient): Straight or
[2022-08-22 10:53] LABS: Basophils Percent Auto 0.5 % (0.2-1.2); Eosinophils Absolute Auto 0.1 K/mm3 (0-0.3); Eosinophils Percent Auto 1.6 % (0-4.4); Hematocrit 40.1 % (37.0-47.0); Hemoglobin 13.1 g/dL (12.0-15.0); Immature Granulocyte Absolute 0.02 K/mm3 (0.00-0.031); Immature Granulocyte Percent A 0.3 % (0-0.5); Lymphocytes Absolute Auto 0.99 K/mm3 (0.9-3.2); Lymphocytes Percent Auto 17.1 % (18.3-44.2); Mean Corpuscular HGB Conc 32.7 g/dl (32-36); Mean Corpuscular Hemoglobin 30.4 pg (26-34); Mean Platelet Volume 8.4 fl (7.4-10.4); Monocytes Absolute Auto 0.3 K/mm3 (0.1-0.6); Monocytes Percent Auto 5.9 % (2.6-8.5); Neutrophils Absolute Auto 4.3 K/mm3 (1.3-6.7); Neutrophils Percent Auto 74.6 % (45.5-73.1); Platelet Count Result 228 k/mm3 (150-375); Red Blood Count 4.31 M/mm3 (4.2-5.4); White Blood Count 5.8 K/mm3 (4.5-10.0)
--- NOTE | 2022-08-22 10:54 | PC.NURSE ---
Called poison control who reviewed EKG and stated all was normal for EKG. Poison control advised to get labs done, to which it was replied that labs were drawn just not back yet. Poison control also mentioned to not give flumazenil.
[2022-08-22 10:57] LABS: Alveolar/Arterial O2 Gradient 29.6 mmHg; Base Excess ABG 2.6 mEq/l (+/-2.0); Carboxyhemoglobin 1.1 % THb (0-2.0); Fractional Inspired Oxygen 21 %; HCO3 ABG 27.8 mEq/l (22.0-26.0); Methemoglobin ABG 0.3 %THb (0-1.5); Oxygen Content ABG 17.3 %vol (16.0-22.0); Oxygen Saturation ABG 93.1 % (95.0-100.0); Oxyhemoglobin 91.6 % THb (90.0-100.0); PCO2 ABG 45.1 mmHg (35.0-45.0); PO2 ABG 66.1 mmHg (80.0-100.0); PO2 FiO2 Ratio Arterial Blood 3.15 %; Total Hemoglobin 13.4 g/dL (12.0-18.0); pH ABG 7.408 (7.350-7.450)
[2022-08-22 10:58] LABS: Device ROOM AIR; Modified Allen's Test Pass; Site Drawn LEFT RADIAL
--- NOTE | 2022-08-22 11:01 | PC.NURSE ---
Notified Dr. Kate of poison control response.
[2022-08-22 11:06] LABS: Creatine Kinase 36 U/L (30-135); Magnesium 2.3 mg/dL (1.6-2.3)
[2022-08-22 11:07] LABS: Acetaminophen < 10 ug/mL (10-30); Ethanol < 10 mg/dL (<10); Salicylate < 1.0 mg/dL (2-20)
[2022-08-22 11:08] LABS: Alanine Aminotransferase 19 U/L (6-35); Albumin Level 4.2 g/dL (3.5-5.1); Alkaline Phosphatase 81 U/L (38-126); Anion Gap 4 mmol/L (8-16); Aspartate Amino Transferase 21 U/L (14-36); Bilirubin,Total 0.6 mg/dL (0.2-1.3); Blood Urea Nitrogen 19 mg/dL (7-17); Calcium 9.9 mg/dL (8.4-10.2); Carbon Dioxide 31 mmol/L (22-30); Chloride 107 mmol/L (98-107); Estimated CRCL calculation 38 ml/min; Estimated Glomerular Filt Rate 41; Glucose 112 mg/dL (65-110); Potassium 4.1 mmol/L (3.4-5.0); Sodium 142 mmol/L (137-145)
[2022-08-22] MEDS: SODIUM CHLORIDE 0.9% IV 1,000 ML 999 ML IV CONT (11:19)
[2022-08-22 11:28] LABS: SARS-CoV-2 RNA PCR Negative
[2022-08-22 11:28] LABS: Appearance Urine Clear (Clear); Bilirubin Urine Negative (Negative); Blood Urine Negative (Negative); Color Urine Yellow (Yellow); Glucose Urine UA Negative (Negative); Ketones Urine Negative (Negative); Leukocyte Esterase Ur Negative LEU/UL (Negative); Nitrate Urine Negative (Negative); Protein Urine Negative (Negative); Specific Grav Ur 1.011 (1.001-1.035)
[2022-08-22 11:33] LABS: Add Urine Microscopic? NO
[2022-08-22 11:38] LABS: Thyroid Stimulating Hormone 0.349 uIU/mL (0.465-4.680)
[2022-08-22 11:40] LABS: Amphetamine Screen Urine Negative (Negative); Barbiturate Screen Urine Negative (Negative); Benzodiazepines Screen Urine Positive (Negative); Cannabinoid Screen Urine Negative (Negative); Cocaine Screen Urine Negative (Negative); Methadone Screen Urine Negative (Negative); Opiate Screen Urine Negative (Negative); Phencyclidine Screen Urine Negative (Negative)
--- NOTE | 2022-08-22 12:05 | PC.NURSE ---
Poison control faxed paperwork over for medication that patient took.
[2022-08-22] MEDS: SODIUM CHLORIDE 0.9% IV 1,000 ML 125 ML IV CONT ×2 (12:51→20:19)
--- NOTE | 2022-08-22 12:53 | PM.IMHP ---
H&P: HPI History of Present Illness Date/Time: 08/22/22 12:53 Chief Complaint: Overdose Narrative: This is a 67-year-old female patient who has a history of depression and anxiety. The patient lost her approximately 1 year ago and has been grieving loss of her . She currently has 2 children that her undergoing cancer treatment. The patient has been seeing a grief counselor. The patient spoke to her 90 some year old mother last night and was supposed to pick her mother up at 6:00 a.m. this morning. However whenever the patient did not show up her mother found her right to check on her daughter. Her mother found her minimally responsive. The patient had taken unknown amount of trazodone and Xanax. It was reported that the patient had left a suicide note. PH is 7.408 CO2 was 45.1. Her toxic a college E screen was positive for benzodiazepines and her acetaminophen level was less than 10. Alcohol level was less than 10 as well. The patient is negative for COVID. Chest x-ray was read as mild atelectasis at the lung bases. The cook 3 pastry was notified. The patient is being admitted for observation status on the date of service of 08/22/2022. Review of Systems Review of Systems: All systems reviewed & are unremarkable except as noted in HPI and below Constitutional: Constitutional: Reports as per HPI and Reports no additional constitutional complaints Eyes: Eyes: Reports as per HPI and Reports no additional eye complaints ENT: Reports system reviewed and no additional complaints, except as documented and Reports Normal hearing present Cardiovascular: Cardiovascular: Reports no additional cardiovascular complaints Respiratory: Respiratory: Reports no additional respiratory complaints and Reports no additional respiratory complaints Gastrointestinal: Gastrointestinal: Reports as per HPI and Reports no additional gastrointestinal complaints Musculoskeletal: Musculoskeletal: Reports no additional musculoskeletal complaints Integumentary/Breasts: Skin/Breast: Reports system reviewed and no additional complaints, except as docu and Reports as per HPI Neurologic: Reports system reviewed and no additional complaints, except as documented, Reports as per HPI and Reports Normal hearing present Psychiatric: Psychiatric: Reports no additional psychiatric complaints and Reports as per HPI Endocrine: Endocrine: Reports no additional endocrine complaints Hematologic/Lymphatic: Hematologic/Lymphatic: Reports no additional hematologic/lymphatic complaints Allergic/Immunologic: Allergic/Immunologic: Reports no additional allergic/immunologic complaints [facility] Past Medical History Medical History (Updated 03/13/23 @ 14:28 by Cynthia Mancuso NP) Anxiety Asthma Chronic cholecystitis with calculus Depression Dyslipidemia Essential (primary) hypertension GERD (gastroesophageal reflux disease) Kidney donor Skin cancer screening Suicide attempt 2009 Type 2 diabetes mellitus Type 2 diabetes mellitus with diabetic polyneuropathy, without long-term current use of insulin Surgical History Surgical History (Updated 08/22/22 @ 14:19 by Cynthia Mancuso NP) H/O bilateral breast reduction surgery H/O hand surgery H/O: hysterectomy History of appendectomy History of cholecystectomy 2020 History of nephrectomy Donated left kidney to son History of tonsillectomy and adenoidectomy Hx laparoscopic cholecystectomy 06/29/20 Hx of tonsillectomy Family History Family History Father Acute myocardial infarction Cancer Mother Family history of malignant neoplasm of breast in first degree relative Sibling Cancer Other Family history of arthritis Family history of malignant neoplasm Family history of mental disorder Hypertension Social History Social History (Updated 08/22/22 @ 14:22 by Cynthia Mancuso NP) Social History: She is and lives on her o
--- NOTE | 2022-08-22 13:18 | PC.NURSE ---
Poison control, Tyron, called back and an update was given for labs and vital signs. Per Tyron he is closing the case.
--- NOTE | 2022-08-22 14:47 | PCCCNOTE ---
met with patient bedside, patient is alert and oriented x 4. Patient stated that she drank 2 margaritas and a bottle of moscato wine last night and then proceeded to take a handful of 50mg trazadone and a handful of 0.5 Xanax. Patient stated that she did this with intent to commit suicide and also wrote a note to her family that read if i don't not wake up that was found on her night stand by the paramedics. patient admits to being depressed. states that she follows with Dr Sam johnston. CC also spoke with patients daughter whom is at [facility] getting chemo for her breast cancer. CC gave updates. CC also met patients son, Teddy. Teddy's son is being treated at [facility] for non-hodgkins lymphoma. patient also lost her one year ago in june to lung cancer. patient's son brain states that Autumn, patients mother, is a big stressor in patients life. Teddy states that nothing his mother does for autumn is good enough. patient being transferred to ICU for monitoring. patient's mother had an appointment this morning that patient was suppose to drive her too. when patient didnt show up, autumn became concerned and asked her friend to take her to her daughters, where patient was found in bathroom floor. CC will continue to follow.
[2022-08-22] MEDS: PANTOPRAZOLE SODIUM IV 40 MG VIAL IV PUSH (20:19)
[2022-08-23] VITALS (12 sets, daily range): BP systolic 143–163; BP diastolic 80–97; PULSE 64–94; RESP 12–18; TEMP 36.6–37.2; O2SAT 94–97
[2022-08-23 00:12] LABS: Glucose Point of Care 97 mg/dl (65-105)
[2022-08-23] MEDS: hydrALAZINE HCL 20 MG/ML VIAL 10 MG IV PUSH (04:11)
[2022-08-23] MEDS: SODIUM CHLORIDE 0.9% IV 1,000 ML 125 ML IV CONT ×2 (04:12→11:53)
[2022-08-23 04:36] LABS: Basophils Percent Auto 0.4 % (0.2-1.2); Eosinophils Absolute Auto 0.1 K/mm3 (0-0.3); Eosinophils Percent Auto 1.6 % (0-4.4); Hematocrit 36.9 % (37.0-47.0); Hemoglobin 12.1 g/dL (12.0-15.0); Immature Granulocyte Absolute 0.02 K/mm3 (0.00-0.031); Immature Granulocyte Percent A 0.3 % (0-0.5); Lymphocytes Absolute Auto 1.51 K/mm3 (0.9-3.2); Lymphocytes Percent Auto 22.2 % (18.3-44.2); Mean Corpuscular HGB Conc 32.8 g/dl (32-36); Mean Corpuscular Volume 91.3 fl (80-100); Mean Platelet Volume 8.3 fl (7.4-10.4); Monocytes Absolute Auto 0.4 K/mm3 (0.1-0.6); Monocytes Percent Auto 6.5 % (2.6-8.5); Neutrophils Absolute Auto 4.7 K/mm3 (1.3-6.7); Platelet Count Result 203 k/mm3 (150-375); Red Blood Count 4.04 M/mm3 (4.2-5.4); Red Cell Distribution Width 12.6 % (11.5-14.5); White Blood Count 6.8 K/mm3 (4.5-10.0)
[2022-08-23 04:45] LABS: Hemoglobin A1C 5.4 % (<5.7)
[2022-08-23 04:47] LABS: Alanine Aminotransferase 17 U/L (6-35); Albumin Level 3.5 g/dL (3.5-5.1); Alkaline Phosphatase 78 U/L (38-126); Anion Gap 5 mmol/L (8-16); Aspartate Amino Transferase 21 U/L (14-36); Bilirubin,Total 0.6 mg/dL (0.2-1.3); Blood Urea Nitrogen 13 mg/dL (7-17); Calcium 8.2 mg/dL (8.4-10.2); Carbon Dioxide 25 mmol/L (22-30); Chloride 112 mmol/L (98-107); Estimated CRCL calculation 49 ml/min; Estimated Glomerular Filt Rate 55; Glucose 101 mg/dL (65-110); Magnesium 1.8 mg/dL (1.6-2.3); Potassium 3.5 mmol/L (3.4-5.0); Sodium 142 mmol/L (137-145)
[2022-08-23 04:48] LABS: Lactic Acid Reflex 0.7 mmol/L (0.7-2.0)
[2022-08-23] MEDS: ONDANSETRON INJ 4 MG/2 ML VIAL IV PUSH (05:25)
[2022-08-23] MEDS: traMADol HCL (*CRX) 50 MG TABLET PO ×2 (05:48→11:50)
[2022-08-23] MEDS: PANTOPRAZOLE SODIUM IV 40 MG VIAL IV PUSH (08:21)
[2022-08-23] MEDS: ACETAMINOPHEN 500 MG TABLET 1000 MG PO (08:23)
--- NOTE | 2022-08-23 11:38 | PM.IMPN ---
Progress Note: A&P Assessment and Plan (1) Intentional overdose: Qualifiers: Encounter type: initial encounter Qualified Code(s): T50.902A - Poisoning by unspecified drugs, medicaments and biological substances, intentional self-harm, initial encounter Code(s): T50.902A - Poisoning by unspecified drugs, medicaments and biological substances, intentional self-harm, initial encounter Status: Acute Assessment and Plan: Intentional overdose on trazodone and Xanax with history of suicide attempt in the past, long history of impulsive, self-harming behavior noted per patient's psychiatrist, multiple recent stressors, including of about a year ago. Extensive conversation with the patient's psychiatrist by phone, he does not do inpatient psychiatry but is willing to be involved in the patient's care at inpatient facilities and especially has connections at [facility], [facility] and [facility] Crisis has been consulted as patient is medically cleared at this time for d/c to psych facility health unit coordinator has been working with the family. The patient will need to be medically cleared prior to going to psychiatric care facility. (2) Essential (primary) hypertension: Code(s): I10 - Essential (primary) hypertension Status: Acute Assessment and Plan: Restart home blood pressure meds (3) Mixed hyperlipidemia: Code(s): E78.2 - Mixed hyperlipidemia Status: Acute Assessment and Plan: Regular diet (4) DAIN (acute kidney injury): Code(s): N17.9 - Acute kidney failure, unspecified Status: Acute Assessment and Plan: resolved, d/c IVF (5) Depression with anxiety: Code(s): F41.8 - Other specified anxiety disorders Status: Acute Assessment and Plan: Would continue to hold Xanax and trazodone, will restart naltrexone and Prozac Plan a1c was 5.4%, d/c accuchecks DVT prophylaxis with SCDs GI prophylaxis not indicated Code status full code Subjective Date/time seen: 08/23/22 11:38 Interval history: 59-year-old female past medical history significant for severe depression and anxiety is presenting with suicide attempt and impulsive behavior. She was found lethargic after taking an unknown amount of trazodone and Xanax. Her psychiatrist at [facility], Dr. Vargas, has been called and is recommending inpatient psychiatry. Patient is medically cleared at this time and plan is to assess for inpatient psychiatry bed today. No overnight events noted. No chest pain or shortness of breath. No nausea, vomiting or diarrhea. No fevers or chills. Patient is quite tearful over her mental health. She feels unsafe going home and is afraid that she might try to harm herself again. Daughter is at bedside extensive conversation was had regarding safe discharge the patient. She is agreeable to going to an inpatient facility at this time. Review of Systems Review of Systems: 12 point review of systems was assessed and was negative except as noted in the HPI Exam Narrative: General: No acute distress, alert and oriented per baseline HEENT: Atraumatic, normocephalic, mucous membranes moist CV: Regular rate and rhythm, S1, S2 Lungs: Clear to auscultation bilaterally, no rales or crackles noted, no wheezes, good air entry Abdomen: Soft, nontender, nondistended Extremities: Normal to inspection Skin: No rashes noted, no lesions or wounds seen Psych: Labile affect, tearful Objective Data Vital Signs Vital Signs: Vital Signs - 24 hr 08/22/22 11:45 08/22/22 11:46 08/22/22 12:00 Temperature Pulse Rate 80 73 78 Respiratory Rate 22 H 14 17 Blood Pressure 156/107 H Pulse Oximetry Oxygen Delivery 08/22/22 12:01 08/22/22 12:02 08/22/22 12:15 Temperature Pulse Rate 78 78 71 Respiratory Rate 21 H 20 12 Blood Pressure 157/91 H Pulse Oximetry Oxygen Delivery 08/22/22 12:16
[2022-08-23 11:52] LABS: Glucose Point of Care 82 mg/dl (65-105)
[2022-08-23 14:57] LABS: D Dimer 0.72 ug/mL (<0.48)
--- NOTE | 2022-09-14 17:24 | PM.TDS ---
Transfer Discharge Sum: Prov Provider Date of admission: 08/22/22 12:36 Primary care physician: Avani Huerta MD Admitting clinician: Jovita Salinas DO Consults: 08/22/22 Care Coordination Consult Routine Comment: When the patient is medically stable Reason for Consult:: Crisis Intervention Consult to Physician Routine Comment: Consulting Provider: Jayesh Staples Reason for consultation: Intentional overdose Has provider been notified: Yes DS: Admitting Diagnosis Discharge Date 08/23/22 Admitting Diagnosis Suicide attempt DS: Discharge Diagnosis Discharge Diagnosis (1) Intentional overdose: Qualifiers: Encounter type: initial encounter Qualified Code(s): T50.902A - Poisoning by unspecified drugs, medicaments and biological substances, intentional self-harm, initial encounter Code(s): T50.902A - Poisoning by unspecified drugs, medicaments and biological substances, intentional self-harm, initial encounter Status: Acute Assessment and Plan: Intentional overdose on trazodone and Xanax with history of suicide attempt in the past, long history of impulsive, self-harming behavior noted per patient's psychiatrist, multiple recent stressors, including of about a year ago. Extensive conversation with the patient's psychiatrist by phone, he does not do inpatient psychiatry but is willing to be involved in the patient's care at inpatient facilities and especially has connections at [facility] and [facility] Crisis has been consulted as patient is medically cleared at this time for d/c to psych facility clinical nursing coordinator has been working with the family. The patient will need to be medically cleared prior to going to psychiatric care facility. (2) Essential (primary) hypertension: Code(s): I10 - Essential (primary) hypertension Status: Acute Assessment and Plan: Restart home blood pressure meds (3) Mixed hyperlipidemia: Code(s): E78.2 - Mixed hyperlipidemia Status: Acute Assessment and Plan: Regular diet (4) DAIN (acute kidney injury): Code(s): N17.9 - Acute kidney failure, unspecified Status: Acute Assessment and Plan: resolved, d/c IVF (5) Depression with anxiety: Code(s): F41.8 - Other specified anxiety disorders Status: Acute Assessment and Plan: Would continue to hold Xanax and trazodone, will restart naltrexone and Prozac Plan a1c was 5.4%, d/c accuchecks DVT prophylaxis with SCDs GI prophylaxis not indicated Code status full code Transfer Discharge Sum: Med Medications Active and Home Medications: Home Medications triamterene 37.5 mg-hydrochlorothiazide 25 mg tablet 1 tablet PO QAM 03/11/20 [History Confirmed 08/22/22] alprazolam 0.5 mg tablet 0.5 mg PO BID PRN Anxiety 06/25/20 [History Confirmed 08/22/22] fluoxetine 20 mg capsule 20 mg PO HS 06/25/20 [History Confirmed 08/22/22] naltrexone 50 mg tablet 50 mg PO HS 06/25/20 [History Confirmed 08/22/22] trazodone 100 mg tablet 200 mg PO HS 09/30/20 [History Confirmed 08/22/22] bupropion HCl 300 mg 24 hr tablet, extended release 300 mg PO DAILY 08/22/22 [History Confirmed 08/22/22] Transfer Discharge Sum: Hosp Hospital Course Hospital course: 59-year-old female past medical history significant for severe depression and anxiety is presenting with suicide attempt and impulsive behavior.? She was found lethargic after taking an unknown amount of trazodone and Xanax.? Her psychiatrist at [facility], Dr. Vargas, has been called and is recommending inpatient psychiatry.? Patient is medically cleared at this time and plan is to assess for inpatient psychiatry bed today. No overnight events noted.? No chest pain or shortness of breath.? No nausea, vomiting or diarrhea.? No fevers or chills.? Patient is quite tearful over her mental health.? She feels unsafe going home and is afraid that s
== END 2022-08-23 19:40 | disposition other institution (70) ==
LOC: ANHED 12:42 → ANHICU 13:17
PROVIDERS: Nurse Practitioner; Admitting Provider Student in an Organized Health Care Education/Training Program; Emergency Provider Emergency Medicine; PCP Internal Medicine; Visit Provider Internal Medicine
DX: T42.4X2A Poisoning by benzodiazepines, intentional self-harm, initial encounter (principal); I10 Essential (primary) hypertension; N17.9 Acute kidney failure, unspecified; E78.2 Mixed hyperlipidemia; F41.8 Other specified anxiety disorders; I45.10 Unspecified right bundle-branch block; J98.11 Atelectasis; Z20.822 Contact with and (suspected) exposure to COVID-19; J45.909 Unspecified asthma, uncomplicated; F32.A Depression, unspecified; K21.9 Gastro-esophageal reflux disease without esophagitis; Z91.51 Personal history of suicidal behavior; E11.42 Type 2 diabetes mellitus with diabetic polyneuropathy; Z79.4 Long term (current) use of insulin; Z82.49 Family history of ischemic heart disease and other diseases of the circulatory system
CPT/HCPCS: 36415; 36600; 71045; 80053; 80307; 81003; 82375; 82550; 82805; 82948; 83036; 83050; 83605; 83735; 84443; 85025; 85380; 93005; 96361; 96374; 96375; 96376; 99285; A9270; C9113; G0378; J0360; J2405; J7030; U0003; U0005

== ENCOUNTER 2023-06-07 21:33 | Inpatient (IN) | payer MEDICARE, SELFPAY ==
[2023-06-07] VITALS (16 sets, daily range): BP systolic 85–117; BP diastolic 47–60; PULSE 82–95; RESP 12–23; TEMP 36.7; O2SAT 96–99
--- NOTE | ~2023-06-07 | XR_ITS ---
EXAMINATION: XR chest 1V portable DATE: 06/12/2023 05:30 INDICATION: Pulmonary infiltrates. TECHNIQUE: A single frontal view of the chest was obtained. COMPARISON: Chest single view 06/11/2023, CT abdomen and pelvis 06/18/20 FINDINGS: There are airspace opacities in the mid and lower lung zones with a basilar predominance. T here are moderate-sized right and small left pleural effusions.. No pneumothorax. The heart size is n ormal. IMPRESSION: 1. Airspace opacities in the mid and lower lung zones with a basilar predominance, consistent with at electasis versus pneumonia. 2. Moderate-sized right pleural effusion and small left pleural effusion with worsening on the right. Reviewed, dictated and finalized at location A. RETE PRECAST MOULDER IMPRESSION: 1. Airspace opacities in the mid and lower lung zones with a basilar predominan ce, consistent with atelectasis versus pneumonia. 2. Moderate-sized right pleural effusion and small left pleural effusion with w orsening on the right.
--- NOTE | ~2023-06-07 | XR_ITS ---
EXAMINATION: XR chest 1V portable Exam Date/Time: 06/07/2023 22:15 CAREER GUIDANCE COUNSELOR HISTORY: altered mental status, overdose Comparison: 08/22/2022. RESULT: Lines, tubes, and devices: Cholecystectomy and GE junction clips. Lungs and pleura: Linear and subsegmental bibasilar opacities. Cardiomediastinal silhouette: Stable. Other: No acute osseous or upper abdominal finding. IMPRESSION: Subsegmental bibasilar atelectasis/consolidation. Aspiration could also be considered in the appropri ate clinical context. Reviewed, dictated and finalized at location K. ER GUIDANCE COUNSELOR IMPRESSION: Subsegmental bibasilar atelectasis/consolidation. Aspiration could also be cons idered in the appropriate clinical context.
--- NOTE | ~2023-06-07 | CT_ITS ---
EXAMINATION: CT brain wo con DATE: 06/07/2023 22:37 INDICATION: altered mental status, overdose . TECHNIQUE: Computed tomography (CT) of the head was performed without intravenous contrast. The mA wa s adjusted according to patient size. Iterative reconstruction technique was employed. The dose-lengt h product was 605.33 mGy-cm. COMPARISON: MRI brain 11/12/2015. FINDINGS: No acute intracranial hemorrhage or extra-axial fluid collection. No hydrocephalus, mass, or herniation. No acute ischemic infarct. Unremarkable dural venous sinus attenuation. No acute osseous abnormality. The aerated spaces are clear. Mild atrophy and chronic white matter change. Atherosclerotic intracranial calcification. IMPRESSION: No acute intracranial process. Reviewed, dictated and finalized at location K. RATORY TECHNICIAN
--- NOTE | ~2023-06-07 | XR_ITS ---
EXAMINATION: XR chest 1V portable DATE: 06/11/2023 05:43 INDICATION: Pulmonary infiltrates. TECHNIQUE: A single frontal view of the chest was obtained. COMPARISON: Chest single view 06/10/2023 FINDINGS: The patient is rotated to her left. There are small pleural effusions. There are airspace o pacities in all right lung zones and in left lower lung zone. No pneumothorax. The heart size is norm al. IMPRESSION: 1. Airspace opacities in right lung and left lower lung zone with worsening on the right, consistent with pulmonary edema versus pneumonia. 2. Stable small pleural effusions. Reviewed, dictated and finalized at location A. BRIM AND CROWN LAMINATING OPERATOR
--- NOTE | ~2023-06-07 | XR_ITS ---
EXAMINATION: XR chest 1V portable DATE: 06/10/2023 05:33 INDICATION: Pulmonary edema. Pneumonia. TECHNIQUE: A single frontal view of the chest was obtained. COMPARISON: Chest single view 06/09/2023, CT abdomen and pelvis 06/18/2020 FINDINGS: There is a diffuse interstitial pattern in the lungs. There are airspace opacities in the p erihilar regions and at the lung bases. There are small pleural effusions. No pneumothorax. The heart size is normal. IMPRESSION: 1. Diffuse lung disease with mild improvement, consistent with pulmonary edema versus pneumonia. 2. Small pleural effusions. Reviewed, dictated and finalized at location A. ONNEL INTERVIEWER
--- NOTE | ~2023-06-07 | CT_ITS ---
EXAMINATION: CT BRAIN W/O DATE: 06/09/2023 09:11 INDICATION: Encephalopathy TECHNIQUE: Computed tomography (CT) of the head was performed without intravenous contrast. The dose- length product was 1135.00 mGy-cm. Automated exposure control and iterative reconstruction technique were employed. COMPARISON: No prior studies for comparison. FINDINGS: Normal brain parenchymal volume for age. Normal merino-white differentiation. No acute intrac ranial hemorrhage, infarction, mass or mass effect. Study significantly limited due to motion artifac t. No ventriculomegaly or midline shift. Midline sagittal images demonstrate a normal corpus callosum, c raniovertebral junction and sella turcica. Basilar cisterns are patent. Paranasal sinuses and mastoids are pneumatized. No depressed skull fractures. IMPRESSION: 1. No acute intracranial abnormality. Limited study. Reviewed, dictated and finalized at location A. CTOR CLINICAL PHARMACOLOGY
--- NOTE | ~2023-06-07 | XR_ITS ---
EXAMINATION: XR chest 1V portable DATE: 06/09/2023 05:55 INDICATION: High oxygen requirements. TECHNIQUE: A single frontal view of the chest was obtained. COMPARISON: Chest single view 06/07/2023, CT abdomen and pelvis 06/18/20 FINDINGS: There is a diffuse interstitial pattern in the lungs. There are airspace opacities in the p erihilar regions. There are small pleural effusions. No pneumothorax. The heart size is normal. IMPRESSION: 1. Worsened diffuse lung disease, likely moderate pulmonary edema. 2. Small pleural effusions. Reviewed, dictated and finalized at location A. E IN TELLER
--- NOTE | 2023-06-07 21:37 | ECG_ITS ---
Measurements Intervals [place] Rate: 93 P: 56 AL: 140 QRS: -9 QRSD: 92 T: -10 QT: 391 QTc: 487 Interpretive Statements SINUS RHYTHM INCOMPLETE RIGHT BUNDLE BRANCH BLOCK [90+ ms QRS DURATION, TERMINAL R IN V1/V2, 40+ ms S IN I/aVL/V4/V5/V6] NONSPECIFIC ST & T-WAVE ABNORMALITY COMPARED TO ECG 08/22/2022 10:34:01 NO SIGNIFICANT CHANGES Electronically Signed On 06-08-2023 9:13:28 [employer]ITCH WELDER by Jaun Jefferson M.D.
[2023-06-07 22:02] LABS: Basophils Percent Auto 0.2 % (0.2-1.2); Eosinophils Absolute Auto 0.1 K/mm3 (0-0.3); Eosinophils Percent Auto 1.1 % (0-4.4); Hematocrit 39.2 % (37.0-47.0); Hemoglobin 13.3 g/dL (12.0-15.0); Immature Granulocyte Absolute 0.03 K/mm3 (0.00-0.031); Immature Granulocyte Percent A 0.3 % (0-0.5); Lymphocytes Percent Auto 11.1 % (18.3-44.2); Mean Corpuscular HGB Conc 33.9 g/dl (32-36); Mean Corpuscular Hemoglobin 30.8 pg (26-34); Mean Corpuscular Volume 90.7 fl (80-100); Mean Platelet Volume 8.4 fl (7.4-10.4); Monocytes Absolute Auto 0.5 K/mm3 (0.1-0.6); Monocytes Percent Auto 4.7 % (2.6-8.5); Neutrophils Absolute Auto 8.2 K/mm3 (1.3-6.7); Neutrophils Percent Auto 82.6 % (45.5-73.1); Platelet Count Result 200 k/mm3 (150-375); Red Blood Count 4.32 M/mm3 (4.2-5.4); Red Cell Distribution Width 12.4 % (11.5-14.5); White Blood Count 9.9 K/mm3 (4.5-10.0)
[2023-06-07 22:03] LABS: Acetaminophen < 10 ug/mL (10-30); Ethanol < 10 mg/dL (<10); Salicylate < 1.0 mg/dL (2-20)
[2023-06-07 22:04] LABS: Potassium 3.7 mmol/L (3.4-5.0)
[2023-06-07 22:15] LABS: Appearance Urine Clear (Clear); Bilirubin Urine Negative (Negative); Blood Urine Negative (Negative); Color Urine Yellow (Yellow); Glucose Urine UA Negative (Negative); Ketones Urine Negative (Negative); Leukocyte Esterase Ur Negative LEU/UL (Negative); Nitrate Urine Negative (Negative); Protein Urine Negative (Negative); Specific Grav Ur 1.014 (1.001-1.035); Urobilinogen Urine 0.2 mg/dL (<2.0)
[2023-06-07 22:17] LABS: Add Urine Microscopic? NO
[2023-06-07 22:21] LABS: Alveolar/Arterial O2 Gradient 54.6 mmHg; Base Excess ABG 1.7 mEq/l (+/-2.0); Device NASAL CANNULA; Fractional Inspired Oxygen 28 %; HCO3 ABG 26.9 mEq/l (22.0-26.0); Oxyhemoglobin 95.2 % THb (90.0-100.0); PCO2 ABG 44.6 mmHg (35.0-45.0); PO2 ABG 92.4 mmHg (80.0-100.0); Site Drawn RIGHT BRACHIAL; Total Hemoglobin 13.4 g/dL (12.0-18.0); pH ABG 7.399 (7.350-7.450)
[2023-06-07 22:23] LABS: Alanine Aminotransferase 20 U/L (6-35); Alkaline Phosphatase 84 U/L (38-126); Anion Gap 9 mmol/L (8-16); Aspartate Amino Transferase 23 U/L (14-36); Bilirubin,Total 0.6 mg/dL (0.2-1.3); Blood Urea Nitrogen 27 mg/dL (7-17); Carbon Dioxide 27 mmol/L (22-30); Chloride 103 mmol/L (98-107); Estimated Glomerular Filt Rate 45; Glucose 175 mg/dL (65-110); Sodium 139 mmol/L (137-145)
[2023-06-07 22:29] LABS: SARS-CoV-2 RNA PCR Negative (Negative)
[2023-06-07 22:31] LABS: Amphetamine Screen Urine Negative (Negative); Barbiturate Screen Urine Negative (Negative); Benzodiazepines Screen Urine Positive (Negative); Cannabinoid Screen Urine Negative (Negative); Cocaine Screen Urine Negative (Negative); Methadone Screen Urine Negative (Negative); Opiate Screen Urine Negative (Negative); Phencyclidine Screen Urine Negative (Negative)
[2023-06-07 22:35] LABS: Thyroid Stimulating Hormone 0.685 uIU/mL (0.465-4.680)
[2023-06-07] MEDS: SODIUM CHLORIDE 0.9% IV 1,000 ML 999 ML IV CONT ×2 (22:49→23:57)
--- NOTE | 2023-06-07 22:53 | ED.GENADULT ---
HPI - General Adult General Chief complaint: Overdose Stated complaint: OVERDOSE Time Seen by Provider: 06/07/23 21:36 History of Present Illness HPI narrative: Patient is a 67-year-old female who presents emergency department with chief complaint of overdose. Family reported to EMS that the patient earlier today took alprazolam and was drowsy they had planned on monitoring the patient at home and reports the initial ingestion took place around 10:00 a.m. the patient's family noticed that she had increasing lethargic and then found that the patient had 5300 mg of trazodone was missing to patient was initially found to have a blood pressure in the 80s but received IV fluids prior to arrival in the emergency department when EMS arrived the patient was responsive to painful stimuli but upon arrival to the emergency department patient would respond to loud verbal stimuli per the family report the patient has prior history of overdoses Related Data Home Medications Medication Instructions Recorded Confirmed triamterene 37.5 1 tablet PO QAM 03/11/20 06/08/23 mg-hydrochlorothiazide 25 mg tablet alprazolam 0.5 mg tablet 0.5 mg PO DAILY PRN Anxiety 06/25/20 06/08/23 fluoxetine 20 mg capsule 20 mg PO HS 06/25/20 06/08/23 trazodone 100 mg tablet 200 mg PO HS 09/30/20 06/08/23 gabapentin 300 mg capsule 600 mg PO BID 06/08/23 06/08/23 pantoprazole 40 mg tablet,delayed 40 mg PO DAILY 06/08/23 06/08/23 release Allergies Allergy/AdvReac Type Severity Reaction Status Date / Time latex Allergy Mild Rash/trouble Verified 06/15/22 07:24 breathing morphine Allergy Mild Rash Verified 06/15/22 07:24 Review of Systems Review of Systems: A 10 system review of systems was completed on the patient and is negative except for what is stated in the HPI. Nursing and ancillary documentation was reviewed. [facility] Past Medical History Medical History Anxiety Asthma Chronic cholecystitis with calculus Depression Depression with anxiety Dyslipidemia Essential (primary) hypertension GERD (gastroesophageal reflux disease) Kidney donor Skin cancer screening Suicide attempt 2009 Type 2 diabetes mellitus Type 2 diabetes mellitus with diabetic polyneuropathy, without long-term current use of insulin Surgical History Surgical History H/O bilateral breast reduction surgery H/O hand surgery H/O: hysterectomy History of appendectomy History of cholecystectomy 2020 History of nephrectomy 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 She has 3 children, 2 with cancer. She is retired. Code status full code Smoking status: Never smoker Second hand tobacco smoke exposure: No Alcohol intake: unknown Alcohol use details: DRANK SMALL AMTS YEARS AGO Substance use: never Substance use type: prescription drug Lack of Transportation: No Lack of Food: Never True Current Housing: I Have Housing Concerned About Future Housing: No Difficulty Paying Gas/Electric Bills: No Difficulty Paying for Meds: No Currently Unemployed: No Education: Associate Degree Difficulty w/ Childcare or Family Care: No Living arrangements: with family Additional living arrangements comments: Occupation/Education: retir
[2023-06-08] VITALS (14 sets, daily range): BP systolic 87–107; BP diastolic 50–62; PULSE 84–104; RESP 12–34; TEMP 36.1–37.4; O2SAT 92–98; BMI 26.6
--- NOTE | 2023-06-08 01:06 | ADMGEN ---
This patient, Gaviota Johnson, was admitted to Intensive Care Unit-9 at 0010. Patient/family oriented to hospital policies and general routines including ID bracelet, bed and alarms, visiting hours, pain management, procedures, bathroom and other care routines, personal items, smoking policy, room service/diet, and visiting hours. Information on how to activate the Rapid Response Team has been discussed. Patient/Family are encouraged to report perceived risks to care and to ask questions if they do not understand what they are told or what they should do.
[2023-06-08] MEDS: SODIUM CHLORIDE 0.9% IV 1,000 ML 125 ML IV CONT ×3 (01:58→17:07)
[2023-06-08 04:02] LABS: Basophils Percent Auto 0.2 % (0.2-1.2); Eosinophils Percent Auto 0.2 % (0-4.4); Hematocrit 39.9 % (37.0-47.0); Hemoglobin 12.8 g/dL (12.0-15.0); Immature Granulocyte Absolute 0.03 K/mm3 (0.00-0.031); Immature Granulocyte Percent A 0.3 % (0-0.5); Lymphocytes Absolute Auto 0.86 K/mm3 (0.9-3.2); Lymphocytes Percent Auto 9.5 % (18.3-44.2); Mean Corpuscular HGB Conc 32.1 g/dl (32-36); Mean Corpuscular Hemoglobin 29.2 pg (26-34); Mean Corpuscular Volume 91.1 fl (80-100); Mean Platelet Volume 8.3 fl (7.4-10.4); Monocytes Absolute Auto 0.3 K/mm3 (0.1-0.6); Monocytes Percent Auto 3.6 % (2.6-8.5); Neutrophils Absolute Auto 7.8 K/mm3 (1.3-6.7); Neutrophils Percent Auto 86.2 % (45.5-73.1); Platelet Count Result 187 k/mm3 (150-375); Red Blood Count 4.38 M/mm3 (4.2-5.4); Red Cell Distribution Width 12.3 % (11.5-14.5); White Blood Count 9.1 K/mm3 (4.5-10.0)
[2023-06-08 04:09] LABS: Alanine Aminotransferase 20 U/L (6-35); Alkaline Phosphatase 81 U/L (38-126); Anion Gap 10 mmol/L (8-16); Aspartate Amino Transferase 24 U/L (14-36); Bilirubin,Total 0.6 mg/dL (0.2-1.3); Blood Urea Nitrogen 25 mg/dL (7-17); Calcium 8.4 mg/dL (8.4-10.2); Carbon Dioxide 22 mmol/L (22-30); Chloride 108 mmol/L (98-107); Estimated CRCL calculation 39 ml/min; Estimated Glomerular Filt Rate 49; Glucose 179 mg/dL (65-110); Magnesium 2.2 mg/dL (1.6-2.3); Sodium 140 mmol/L (137-145)
--- NOTE | 2023-06-08 05:00 | ECG_ITS ---
Measurements Intervals Paul Rate: 93 P: 27 MN: 120 QRS: -23 QRSD: 99 T: -16 QT: 401 QTc: 501 Interpretive Statements SINUS RHYTHM BORDERLINE LEFT AXIS DEVIATION [QRS AXIS < -20] INCOMPLETE RIGHT BUNDLE BRANCH BLOCK [90+ ms QRS DURATION, TERMINAL R IN V1/V2, 40+ ms S IN I/aVL/V4/V5/V6] NONSPECIFIC ST & T-WAVE ABNORMALITY WARNING: DATA QUALITY MAY AFFECT INTERPRETATION COMPARED TO ECG 06/07/2023 21:41:01 NO SIGNIFICANT CHANGES Electronically Signed On 06-08-2023 9:17:07 SCHOOL PRINCIPAL by Jaun Jefferson M.D.
--- NOTE | 2023-06-08 08:16 | PM.IMHP ---
H&P: HPI History of Present Illness Date/Time: 06/08/23 08:16 Chief Complaint: overdose Narrative: 67 year old female with past medical history of anxiety, asthma, depression, dyslipidemia, essential hypertension, GERD, kidney stone, suicide attempt in 2009 and 2022, type 2 diabetes, presented to the ED after taking an unknown amount of alprazolam and trazodone. Patient's family found patient to be lethargic and intermittently unresponsive. In the ER, she tested positive for benzo. She was admitted to the ICU for monitoring, IVF, poison control notified. According to the son who is at the bedside states that the patient has been under lot of stress, taking care of her 90-year-old mother, patient's daughter had been diagnosed with breast cancer.? Also her mother is in the hospital, all this is overwhelming for her. Review of Systems Review of Systems: ROS unobtainable: Yes unobtainable due to mental status PMFSH Past Medical History Medical History Anxiety Asthma Chronic cholecystitis with calculus Depression Depression with anxiety Dyslipidemia Essential (primary) hypertension GERD (gastroesophageal reflux disease) Kidney donor Skin cancer screening Suicide attempt 2009 Type 2 diabetes mellitus Type 2 diabetes mellitus with diabetic polyneuropathy, without long-term current use of insulin Surgical History Surgical History H/O bilateral breast reduction surgery H/O hand surgery H/O: hysterectomy History of appendectomy History of cholecystectomy 2020 History of nephrectomy 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 She has 3 children, 2 with cancer. She is retired. Code status full code Smoking status: Never smoker Second hand tobacco smoke exposure: No Alcohol intake: unknown Alcohol use details: DRANK SMALL AMTS YEARS AGO Substance use: never Substance use type: prescription drug Lack of Transportation: No Lack of Food: Never True Current Housing: I Have Housing Concerned About Future Housing: No Difficulty Paying Gas/Electric Bills: No Difficulty Paying for Meds: No Currently Unemployed: No Education: Associate Degree Difficulty w/ Childcare or Family Care: No Living arrangements: with family Additional living arrangements comments: Occupation/Education: retired Gender identity (if verbalized by the patient): Female Sexual Orientation (if Verbalized by the Patient): Straight or Heterosexual Spiritual care concerns: No Meds Home Medications and Allergies Home Medications Medication Instructions Recorded Confirmed Type triamterene 37.5 1 tablet PO QAM 03/11/20 06/08/23 History mg-hydrochlorothiazide 25 mg tablet alprazolam 0.5 mg tablet 0.5 mg PO DAILY PRN Anxiety 06/25/20 06/08/23 History fluoxetine 20 mg capsule 20 mg PO HS 06/25/20 06/08/23 History trazodone 100 mg tablet 200 mg PO HS 09/30/20 06/08/23 History gabapentin 300 mg capsule 600 mg PO BID 06/08/23 06/08/23 History pantoprazole 40 mg tablet,delayed 40 mg PO DAILY 06/08/23 06/08/23 History release Allergies Allergy/AdvReac Type Severity Reaction Status Date / Time latex Allergy Mild Rash/trouble Verified 06/15/22 07:24 breathing morphine Allergy Mild Rash Verified 06/15/22 07
[2023-06-08] MEDS: ENOXAPARIN 40 MG/0.4 ML SYRINGE SUB-Q (08:40)
[2023-06-08] MEDS: LACTATED RINGERS 500 ML IV CONT (08:41)
[2023-06-08] MEDS: PANTOPRAZOLE SODIUM IV 40 MG VIAL IV PUSH (08:42)
--- NOTE | 2023-06-08 09:07 | WPDCNINT ---
Assessment and Plan Assessment and plan (1) Polysubstance overdose: Code(s): T50.901A - Poisoning by unspecified drugs, medicaments and biological substances, accidental (unintentional), initial encounter Status: Acute Assessment and Plan: Patient presented the ED after ingesting unknown amount of Xanax and trazodone. According the ER note he was trazodone 5003 and mg missing at her house. -patient was given 2 L IV fluid bolus in the ER -will give additional 500 IV fluid bolus in the ICU this morning -continue maintenance IV fluids -monitor urine output, insert See for accurate I's and O's -patient is slightly somnolent, See once the medications a metabolizes and excreted out of her system she should start waking up more -continue to monitor closely -poison Control was notified from the ER (2) Depression with anxiety: Code(s): F41.8 - Other specified anxiety disorders Status: Acute Assessment and Plan: Patient has a history of depression and anxiety -takes alprazolam, fluoxetine, gabapentin, trazodone (3) Suicidal behavior: Code(s): R45.89 - Other symptoms and signs involving emotional state Status: Acute Assessment and Plan: According to the son who is at the bedside states that the patient has been under lot of stress, taking care of her 90-year-old mother, patient's daughter had been diagnosed with breast cancer. Also her mother is in the hospital, all this is overwhelming for her. -Likely suicide behavior given the stressors that she is going through -when she is medically stable will have care coordination and crisis management evaluate the patient (4) Type 2 diabetes mellitus: Code(s): E11.9 - Type 2 diabetes mellitus without complications Status: Acute Assessment and Plan: Accu-Cheks and sliding scale insulin (5) Essential (primary) hypertension: Code(s): I10 - Essential (primary) hypertension Status: Acute Assessment and Plan: Currently blood pressure a low normal, will hold home antihypertensives (6) Mixed hyperlipidemia: Code(s): E78.2 - Mixed hyperlipidemia Status: Acute Assessment and Plan: Does not take any medications at home Plan DVT prophylaxis: SCDs and Lovenox Stress ulcer prophylaxis: Protonix Nutrition: NPO Code Status: Full code Critical Care Time Spent: 46 minutes Due to a high probability of clinically significant, life threatening deterioration, the patient required my highest level of preparedness to intervene emergently and I personally spent this critical care time directly and personally managing the patient. This critical care time included obtaining a history; examining the patient; pulse oximetry; ordering and review of studies; arranging urgent treatment with development of a management plan; evaluation of patient's response to treatment; frequent reassessment; and discussions with other providers. It was exclusive of separately billable procedures and treating other patients and teaching time. Please see Assessment and Plan section and the rest of the note for further information on patient assessment and treatment This dictation may have been done utilizing a voice recognition system. Attempts have been made to correct errors. However, there may be uncorrected grammatical, spelling, and recognitions errors present. Tunneling Machine Operator Consult Note Consult date: 06/08/23 Reason for consult: Polysubstance overdose, unknown intent HPI: Gaviota Johnson is a 67 year old female with past medical history of anxiety, asthma, depression, dyslipidemia, essential hypertension, GERD, kidney stone a, suicide attempt in 2009 and 2022, type 2 diabetes presented the ED after taking an unknown amount of alprazolam and trazodone. Patient's family initially noted that she was lethargic and try to monitor her blood pressures in give her some Pedialyte at home. Later on the phone that she had also taken
[2023-06-08 12:08] LABS: Glucose Point of Care 182 mg/dl (65-105)
[2023-06-09] VITALS (25 sets, daily range): BP systolic 91–140; BP diastolic 54–78; PULSE 90–109; RESP 18–24; TEMP 37–38.5; O2SAT 91–95
[2023-06-09 00:03] LABS: Glucose Point of Care 180 mg/dl (65-105)
[2023-06-09] MEDS: SODIUM CHLORIDE 0.9% IV 1,000 ML 125 ML IV CONT (00:32)
[2023-06-09 04:01] LABS: Basophils Percent Auto 0.1 % (0.2-1.2); Immature Granulocyte Absolute 0.09 K/mm3 (0.00-0.031); Immature Granulocyte Percent A 0.7 % (0-0.5); Lymphocytes Absolute Auto 0.66 K/mm3 (0.9-3.2); Mean Corpuscular HGB Conc 32.4 g/dl (32-36); Mean Corpuscular Hemoglobin 29.9 pg (26-34); Mean Platelet Volume 8.6 fl (7.4-10.4); Monocytes Absolute Auto 0.6 K/mm3 (0.1-0.6); Monocytes Percent Auto 4.6 % (2.6-8.5); Neutrophils Absolute Auto 11.8 K/mm3 (1.3-6.7); Neutrophils Percent Auto 89.6 % (45.5-73.1); Platelet Count Result 190 k/mm3 (150-375); Red Blood Count 4.02 M/mm3 (4.2-5.4); Red Cell Distribution Width 12.9 % (11.5-14.5); White Blood Count 13.1 K/mm3 (4.5-10.0)
[2023-06-09 04:21] LABS: Alanine Aminotransferase 21 U/L (6-35); Albumin Level 3.6 g/dL (3.5-5.1); Alkaline Phosphatase 78 U/L (38-126); Anion Gap 9 mmol/L (8-16); Aspartate Amino Transferase 30 U/L (14-36); Bilirubin,Total 0.4 mg/dL (0.2-1.3); Blood Urea Nitrogen 31 mg/dL (7-17); Calcium 8.3 mg/dL (8.4-10.2); Carbon Dioxide 18 mmol/L (22-30); Chloride 115 mmol/L (98-107); Estimated CRCL calculation 39 ml/min; Estimated Glomerular Filt Rate 49; Glucose 182 mg/dL (65-110); Potassium 3.5 mmol/L (3.4-5.0); Sodium 142 mmol/L (137-145)
[2023-06-09 07:21] LABS: NT Pro B Type Natriuretic Pept 4810 pg/mL (19.9-100)
[2023-06-09] MEDS: FUROSEMIDE INJ 40 MG/4 ML VIAL IV PUSH (07:28)
--- NOTE | 2023-06-09 09:38 | WPDINTPN ---
Progress Note: A&P Assessment and Plan (1) Polysubstance overdose: Code(s): T50.901A - Poisoning by unspecified drugs, medicaments and biological substances, accidental (unintentional), initial encounter Status: Acute Assessment and Plan: Patient presented the ED after ingesting unknown amount of Xanax and trazodone. According the ER note he was trazodone 5003 and mg missing at her house. -patient was given adequate IV fluids -likely volume overloaded, maintenance IV fluids have been discontinued, patient given Lasix -will monitor urine output -continue to monitor closely -poison Control was notified from the ER Patient is still somnolent, opens follows commands, nods to question but does not answer questions -06/09: repeat CT scan of the brain did not show any acute intracranial abnormalities (2) Depression with anxiety: Code(s): F41.8 - Other specified anxiety disorders Status: Acute Assessment and Plan: Patient has a history of depression and anxiety -takes alprazolam, fluoxetine, gabapentin, trazodone (3) Suicidal behavior: Code(s): R45.89 - Other symptoms and signs involving emotional state Status: Acute Assessment and Plan: According to the son who is at the bedside states that the patient has been under lot of stress, taking care of her 90-year-old mother, patient's daughter had been diagnosed with breast cancer. Also her mother is in the hospital, all this is overwhelming for her. -Likely suicide behavior given the stressors that she is going through -when she is medically stable will have care coordination and crisis management evaluate the patient (4) Type 2 diabetes mellitus: Code(s): E11.9 - Type 2 diabetes mellitus without complications Status: Acute Assessment and Plan: Accu-Cheks and sliding scale insulin (5) Essential (primary) hypertension: Code(s): I10 - Essential (primary) hypertension Status: Acute Assessment and Plan: Currently blood pressure a low normal, will hold home antihypertensives (6) Mixed hyperlipidemia: Code(s): E78.2 - Mixed hyperlipidemia Status: Acute Assessment and Plan: Does not take any medications at home (7) Sepsis: Code(s): A41.9 - Sepsis, unspecified organism Status: Acute Assessment and Plan: Elevated WBC count, infiltrates on the chest x-ray, tachypnea, hypoxia -could be related to aspiration pneumonia -started on Unasyn Plan DVT prophylaxis: SCDs and Lovenox Stress ulcer prophylaxis: Protonix Nutrition: NPO Code Status: Full code Critical Care Time Spent: 33 minutes Due to a high probability of clinically significant, life threatening deterioration, the patient required my highest level of preparedness to intervene emergently and I personally spent this critical care time directly and personally managing the patient. This critical care time included obtaining a history; examining the patient; pulse oximetry; ordering and review of studies; arranging urgent treatment with development of a management plan; evaluation of patient's response to treatment; frequent reassessment; and discussions with other providers. It was exclusive of separately billable procedures and treating other patients and teaching time. Please see Assessment and Plan section and the rest of the note for further information on patient assessment and treatment This dictation may have been done utilizing a voice recognition system. Attempts have been made to correct errors. However, there may be uncorrected grammatical, spelling, and recognitions errors present. Subjective Date/time seen: 06/09/23 09:38 Interval history: Reason for consult: Polysubstance overdose, unknown intent, likely suicidal behavior 06/09/2023: Seen and examined the ICU, opens eyes to name, nods to questions and follows simple commands, does not answer any questions. Patient was hypoxic this m
[2023-06-09] MEDS: PANTOPRAZOLE SODIUM IV 40 MG VIAL IV PUSH (10:09)
[2023-06-09] MEDS: ENOXAPARIN 40 MG/0.4 ML SYRINGE SUB-Q (10:10)
[2023-06-09] MEDS: AMPICILLIN SULB 3 GM/NS 100 ML 3 GM/100 ML VIAL IVPB ×3 (10:10→20:29)
--- NOTE | 2023-06-09 10:57 | PM.IMPN ---
Progress Note: A&P Assessment and Plan (1) Polysubstance overdose: Code(s): T50.901A - Poisoning by unspecified drugs, medicaments and biological substances, accidental (unintentional), initial encounter Status: Acute Assessment and Plan: Patient presented to the ED after ingesting unknown amount of Xanax and trazodone. Given 2 L IV fluid bolus in the ER, given additional 500 IV fluid bolus in the ICU this morning, continue maintenance IV fluids monitor urine output, insert lanza for accurate I's and O's patient is slightly somnolent, lanza once the medication metabolizes and is excreted out of her system she should start waking up more, continue to monitor closely, poison control was notified from the ER (2) Depression with anxiety: Code(s): F41.8 - Other specified anxiety disorders Status: Acute Assessment and Plan: Patient has a history of depression and anxiety takes alprazolam, fluoxetine, gabapentin, trazodone, on hold for now (3) Suicidal behavior: Code(s): R45.89 - Other symptoms and signs involving emotional state Status: Acute Assessment and Plan: According to the son who is at the bedside states that the patient has been under lot of stress, taking care of her 90-year-old mother, patient's daughter has been diagnosed with breast cancer. Also her mother is in the hospital, all this is overwhelming for her. Likely suicide behavior given the stressors that she is going through and past history of attempts. When she is medically stable will have care coordination and crisis management evaluate the patient (4) Type 2 diabetes mellitus: Code(s): E11.9 - Type 2 diabetes mellitus without complications Status: Acute Assessment and Plan: Accu-Cheks and sliding scale insulin blood glucose reviewed 06/09 (5) Essential (primary) hypertension: Code(s): I10 - Essential (primary) hypertension Status: Acute Assessment and Plan: Currently blood pressure is low normal, will hold home antihypertensives Blood pressure reviewed 06/09 (6) Mixed hyperlipidemia: Code(s): E78.2 - Mixed hyperlipidemia Status: Acute Assessment and Plan: Does not take any medications at home Plan DVT prophylaxis with lovenox GI prophylaxis with PPI Code status full code Subjective Date/time seen: 06/09/23 10:57 Interval history: 67 year old female with past medical history of anxiety, asthma, depression, dyslipidemia, essential hypertension, GERD, kidney stone, suicide attempt in 2009 and 2022, type 2 diabetes, presented to the ED after taking an unknown amount of alprazolam and trazodone. 06/09: No overnight events. Opens eyes to name, nods to questions and follows simple commands, does not answer any questions.? Patient was hypoxic this morning, was given Lasix 40 mg IV x1 with good urine output, respiratory therapist placed her on Vapotherm 40 L flow rate, 40% FiO2 Patient is hemodynamically stable.? WBC count slightly elevated this morning.? Afebrile. Review of Systems Review of Systems: ROS unobtainable: Yes unobtainable due to mental status Exam Narrative: General: No acute distress, lethargic and somnolent HEENT: Atraumatic, normocephalic, mucous membranes moist CV: Regular rate and rhythm, S1, S2 Lungs: Coarse breath sounds throughout, somewhat diminished at bases, no wheeze Abdomen: Soft, nontender, nondistended Extremities: Normal to inspection Skin: No rashes noted, no lesions or wounds seen Psych: Unable to assess Objective Data Vital Signs Vital Signs: Vital Signs - 24 hr 06/08/23 12:00 06/08/23 12:00 06/08/23 12:00 Temperature 97.9 F Pulse Rate 91 91 Respiratory Rate 12 Blood Pressure 96/53 L Pulse Oximetry 96 Oxygen Delivery Room Air Oxygen Flow Rate Fraction of Inspired Oxygen 06/08/23 14:00 06/08/23 14:00 06/08/23 16:00 Temperature 98.7 F Pu
[2023-06-09 11:42] LABS: Glucose Point of Care 150 mg/dl (65-105)
[2023-06-09] MEDS: ACETAMINOPHEN 650 MG SUPPOSITORY RECTAL (16:48)
[2023-06-09 17:02] LABS: Ammonia < 9 umol/L (9-30)
[2023-06-09] MEDS: VANCOMYCIN 1,750 MG/NS 500 ML 1,750 MG/500 ML BAG 250 MG IVPB (17:06)
[2023-06-09 17:48] LABS: Glucose Point of Care 143 mg/dl (65-105)
[2023-06-09 19:07] LABS: MRSA (PCR) NOT DETECTED (NOT DETECTE)
[2023-06-10] VITALS (22 sets, daily range): BP systolic 104–130; BP diastolic 48–80; PULSE 83–103; RESP 16–24; TEMP 37.4–38.3; O2SAT 91–97
[2023-06-10 00:58] LABS: Glucose Point of Care 134 mg/dl (65-105)
[2023-06-10] MEDS: AMPICILLIN SULB 3 GM/NS 100 ML 3 GM/100 ML VIAL IVPB ×4 (02:35→20:12)
[2023-06-10] MEDS: ACETAMINOPHEN 650 MG SUPPOSITORY RECTAL (02:35)
[2023-06-10 04:07] LABS: Basophils Percent Auto 0.3 % (0.2-1.2); Eosinophils Percent Auto 0.3 % (0-4.4); Hematocrit 34.5 % (37.0-47.0); Hemoglobin 11.4 g/dL (12.0-15.0); Immature Granulocyte Absolute 0.12 K/mm3 (0.00-0.031); Immature Granulocyte Percent A 1.3 % (0-0.5); Lymphocytes Absolute Auto 0.93 K/mm3 (0.9-3.2); Lymphocytes Percent Auto 9.9 % (18.3-44.2); Mean Corpuscular Hemoglobin 29.7 pg (26-34); Mean Corpuscular Volume 89.8 fl (80-100); Mean Platelet Volume 8.4 fl (7.4-10.4); Monocytes Absolute Auto 0.8 K/mm3 (0.1-0.6); Monocytes Percent Auto 8.3 % (2.6-8.5); Neutrophils Absolute Auto 7.5 K/mm3 (1.3-6.7); Neutrophils Percent Auto 79.9 % (45.5-73.1); Platelet Count Result 147 k/mm3 (150-375); Red Blood Count 3.84 M/mm3 (4.2-5.4); White Blood Count 9.4 K/mm3 (4.5-10.0)
[2023-06-10 05:52] LABS: Alanine Aminotransferase 25 U/L (6-35); Albumin Level 3.1 g/dL (3.5-5.1); Alkaline Phosphatase 80 U/L (38-126); Anion Gap 5 mmol/L (8-16); Aspartate Amino Transferase 44 U/L (14-36); Bilirubin,Total 0.7 mg/dL (0.2-1.3); Blood Urea Nitrogen 21 mg/dL (7-17); Carbon Dioxide 26 mmol/L (22-30); Chloride 112 mmol/L (98-107); Estimated CRCL calculation 53 ml/min; Estimated Glomerular Filt Rate > 60; Glucose 125 mg/dL (65-110); Magnesium 2.1 mg/dL (1.6-2.3); Potassium 2.5 mmol/L (3.4-5.0); Sodium 143 mmol/L (137-145)
[2023-06-10] MEDS: ENOXAPARIN 40 MG/0.4 ML SYRINGE SUB-Q (09:03)
[2023-06-10] MEDS: PANTOPRAZOLE SODIUM IV 40 MG VIAL IV PUSH (09:03)
[2023-06-10] MEDS: POTASSIUM CHLORIDE 20 MEQ ER TABLET 80 MEQ PO (09:03)
[2023-06-10 11:41] LABS: Glucose Point of Care 109 mg/dl (65-105)
--- NOTE | 2023-06-10 12:20 | WPDINTPN ---
Progress Note: A&P Assessment and Plan (1) Polysubstance overdose: Code(s): T50.901A - Poisoning by unspecified drugs, medicaments and biological substances, accidental (unintentional), initial encounter Status: Acute Assessment and Plan: Patient presented the ED after ingesting unknown amount of Xanax and trazodone. According the ER note he was trazodone 5003 and mg missing at her house. -patient was given adequate IV fluids -likely volume overloaded, maintenance IV fluids have been discontinued, patient given Lasix -will monitor urine output -continue to monitor closely -poison Control was notified from the ER 06/09: Patient is still somnolent, opens follows commands, nods to question but does not answer questions -06/09: repeat CT scan of the brain did not show any acute intracranial abnormalities This morning patient is awake, alert, oriented x3, does not remember how which medications she took which she did tell me that she wanted to harm herself as she is undergoing a lot of stressors Patient may downgrade to medical status -crisis management to evaluate patient and she did heart more clear in his thoughts (2) Depression with anxiety: Code(s): F41.8 - Other specified anxiety disorders Status: Acute Assessment and Plan: Patient has a history of depression and anxiety -takes alprazolam, fluoxetine, gabapentin, trazodone (3) Suicidal behavior: Code(s): R45.89 - Other symptoms and signs involving emotional state Status: Acute Assessment and Plan: According to the son who is at the bedside states that the patient has been under lot of stress, taking care of her 90-year-old mother, patient's daughter had been diagnosed with breast cancer. Also her mother is in the hospital, all this is overwhelming for her. -Likely suicide behavior given the stressors that she is going through -when she is medically stable will have care coordination and crisis management evaluate the patient (4) Type 2 diabetes mellitus: Code(s): E11.9 - Type 2 diabetes mellitus without complications Status: Acute Assessment and Plan: Accu-Cheks and sliding scale insulin (5) Essential (primary) hypertension: Code(s): I10 - Essential (primary) hypertension Status: Acute Assessment and Plan: Currently blood pressure a low normal, will hold home antihypertensives (6) Mixed hyperlipidemia: Code(s): E78.2 - Mixed hyperlipidemia Status: Acute Assessment and Plan: Does not take any medications at home (7) Sepsis: Code(s): A41.9 - Sepsis, unspecified organism Status: Acute Assessment and Plan: Elevated WBC count, infiltrates on the chest x-ray, tachypnea, hypoxia -could be related to aspiration pneumonia -started on Unasyn Plan DVT prophylaxis: SCDs and Lovenox Stress ulcer prophylaxis: Protonix Nutrition: NPO Code Status: Full code Critical Care Time Spent: 31 minute Patient may and downgrade to medical status Due to a high probability of clinically significant, life threatening deterioration, the patient required my highest level of preparedness to intervene emergently and I personally spent this critical care time directly and personally managing the patient. This critical care time included obtaining a history; examining the patient; pulse oximetry; ordering and review of studies; arranging urgent treatment with development of a management plan; evaluation of patient's response to treatment; frequent reassessment; and discussions with other providers. It was exclusive of separately billable procedures and treating other patients and teaching time. Please see Assessment and Plan section and the rest of the note for further information on patient assessment and treatment This dictation may have been done utilizing a voice recognition system. Attempts have been made to correct errors. However, there may be uncorrecte
[2023-06-10] MEDS: ACETAMINOPHEN 325 MG TABLET 650 MG PO ×2 (14:07→22:28)
[2023-06-10] MEDS: VANCOMYCIN 1,250 MG/NS 250 ML 1,250 MG/250 ML BAG 166.67 MG IVPB (16:57)
[2023-06-10 17:04] LABS: Glucose Point of Care 105 mg/dl (65-105)
[2023-06-11] VITALS (16 sets, daily range): BP systolic 117–133; BP diastolic 65–91; PULSE 79–105; RESP 16–22; TEMP 37.5–38.2; O2SAT 88–98
[2023-06-11 00:09] LABS: Glucose Point of Care 103 mg/dl (65-105)
[2023-06-11] MEDS: AMPICILLIN SULB 3 GM/NS 100 ML 3 GM/100 ML VIAL IVPB ×4 (01:53→20:30)
[2023-06-11 03:48] LABS: Basophils Percent Auto 0.4 % (0.2-1.2); Eosinophils Absolute Auto 0.2 K/mm3 (0-0.3); Hematocrit 35.8 % (37.0-47.0); Hemoglobin 11.9 g/dL (12.0-15.0); Immature Granulocyte Percent A 1.3 % (0-0.5); Lymphocytes Percent Auto 15.8 % (18.3-44.2); Mean Corpuscular HGB Conc 33.2 g/dl (32-36); Mean Corpuscular Hemoglobin 29.8 pg (26-34); Mean Corpuscular Volume 89.5 fl (80-100); Mean Platelet Volume 8.2 fl (7.4-10.4); Monocytes Absolute Auto 0.6 K/mm3 (0.1-0.6); Monocytes Percent Auto 8.4 % (2.6-8.5); Neutrophils Absolute Auto 5.5 K/mm3 (1.3-6.7); Neutrophils Percent Auto 72.1 % (45.5-73.1); Platelet Count Result 132 k/mm3 (150-375); White Blood Count 7.6 K/mm3 (4.5-10.0)
[2023-06-11 04:04] LABS: Alanine Aminotransferase 88 U/L (6-35); Albumin Level 3.3 g/dL (3.5-5.1); Alkaline Phosphatase 104 U/L (38-126); Anion Gap 6 mmol/L (8-16); Aspartate Amino Transferase 98 U/L (14-36); Bilirubin,Total 0.9 mg/dL (0.2-1.3); Blood Urea Nitrogen 17 mg/dL (7-17); Calcium 8.4 mg/dL (8.4-10.2); Carbon Dioxide 26 mmol/L (22-30); Chloride 109 mmol/L (98-107); Estimated CRCL calculation 59 ml/min; Estimated Glomerular Filt Rate > 60; Glucose 102 mg/dL (65-110); Magnesium 2.1 mg/dL (1.6-2.3); Phosphorus 2.1 mg/dL (2.5-4.5); Potassium 3.2 mmol/L (3.4-5.0); Sodium 141 mmol/L (137-145)
[2023-06-11 04:50] LABS: Glucose Point of Care 100 mg/dl (65-105)
[2023-06-11] MEDS: ENOXAPARIN 40 MG/0.4 ML SYRINGE SUB-Q (08:08)
[2023-06-11] MEDS: PANTOPRAZOLE SODIUM IV 40 MG VIAL IV PUSH (08:08)
--- NOTE | 2023-06-11 09:07 | PM.IMPN ---
Progress Note: A&P Assessment and Plan (1) Polysubstance overdose: Code(s): T50.901A - Poisoning by unspecified drugs, medicaments and biological substances, accidental (unintentional), initial encounter Status: Acute Assessment and Plan: Patient presented the ED after ingesting unknown amount of Xanax and trazodone. According the ER note he was trazodone 5003 and mg missing at her house. -patient was given adequate IV fluids -likely volume overloaded, maintenance IV fluids have been discontinued, patient given Lasix -will monitor urine output -continue to monitor closely -poison Control was notified from the ER 06/09: Patient is still somnolent, opens follows commands, nods to question but does not answer questions -06/09: repeat CT scan of the brain did not show any acute intracranial abnormalities This morning patient is awake, alert, oriented x3, does not remember which medications she took which she did tell me that she wanted to harm herself as she is undergoing a lot of stressors Patient may downgrade to medical status -crisis management to evaluate patient (2) Depression with anxiety: Code(s): F41.8 - Other specified anxiety disorders Status: Acute Assessment and Plan: Patient has a history of depression and anxiety -takes alprazolam, fluoxetine, gabapentin, trazodone (3) Suicidal behavior: Code(s): R45.89 - Other symptoms and signs involving emotional state Status: Acute Assessment and Plan: According to the son who is at the bedside states that the patient has been under lot of stress, taking care of her 90-year-old mother, patient's daughter had been diagnosed with breast cancer. Also her mother is in the hospital, all this is overwhelming for her. -Likely suicide behavior given the stressors that she is going through -when she is medically stable will have care coordination and crisis management evaluate the patient (4) Type 2 diabetes mellitus: Code(s): E11.9 - Type 2 diabetes mellitus without complications Status: Acute Assessment and Plan: Accu-Cheks and sliding scale insulin (5) Essential (primary) hypertension: Code(s): I10 - Essential (primary) hypertension Status: Acute Assessment and Plan: Currently blood pressure a low normal, will hold home antihypertensives (6) Mixed hyperlipidemia: Code(s): E78.2 - Mixed hyperlipidemia Status: Acute Assessment and Plan: Does not take any medications at home (7) Sepsis: Code(s): A41.9 - Sepsis, unspecified organism Status: Acute Assessment and Plan: Elevated WBC count, infiltrates on the chest x-ray, tachypnea, hypoxia -could be related to aspiration pneumonia -started on Unasyn Plan DVT prophylaxis: Lovenox Stress ulcer prophylaxis: Protonix Code Status: Full code Subjective Date/time seen: 06/11/23 09:07 Interval history: Reason for consult: Polysubstance overdose, unknown intent, likely suicidal behavior 06/10/2023: Patient seen and examined the ICU, is awake, alert, oriented. Patient has noted what happened and how much medication she took though she does tell me that she wanted to harm herself. Responded well to diuretics yesterday, currently on L nasal cannula, denies any chest pain, abdominal pain, nausea vomiting. Complains of mild shortness of breath. Hemodynamically stable, afebrile. States she is hungry and would like to eat some 06/11: feels better than yesterday. No overnight events noted. No chest pain or shortness of breath. No nausea, vomiting or diarrhea. No fevers or chills. Review of Systems Review of Systems: 12 point review of systems was assessed and was negative except as noted in the HPI Exam Narrative: General: Pleasant female in no acute distress HEENT:? Pupil the equal and reactive, sclera is clear Neck:? Supple Respiratory:? Coarse breath sounds bilateral, no
[2023-06-11] MEDS: FUROSEMIDE INJ 40 MG/4 ML VIAL IV PUSH (10:42)
[2023-06-11] MEDS: POTASSIUM PHOS/SODIUM PHOS 250 MG TABLET PO (10:44)
[2023-06-11 11:23] LABS: Glucose Point of Care 113 mg/dl (65-105)
[2023-06-11 16:22] LABS: Vancomycin Trough 6.5 ug/mL (10.0-20.0)
[2023-06-11] MEDS: ACETAMINOPHEN 325 MG TABLET 650 MG PO (16:34)
[2023-06-11 17:08] LABS: Glucose Point of Care 102 mg/dl (65-105)
[2023-06-11] MEDS: VANCOMYCIN 1,250 MG/NS 250 ML 1,250 MG/250 ML BAG 166.67 MG IVPB (18:01)
[2023-06-11] MEDS: MELATONIN 5 MG TABLET PO (20:30)
[2023-06-12 00:25] VITALS: BP 115/77; PULSE 85; RESP 18; TEMP 37.5; O2SAT 93
[2023-06-12 04:05] LABS: Basophils Absolute Auto 0.1 K/mm3 (0.0-0.1); Basophils Percent Auto 0.7 % (0.2-1.2); Eosinophils Absolute Auto 0.3 K/mm3 (0-0.3); Eosinophils Percent Auto 3.7 % (0-4.4); Hematocrit 42.2 % (37.0-47.0); Hemoglobin 13.9 g/dL (12.0-15.0); Immature Granulocyte Absolute 0.08 K/mm3 (0.00-0.031); Immature Granulocyte Percent A 1.1 % (0-0.5); Lymphocytes Absolute Auto 1.17 K/mm3 (0.9-3.2); Lymphocytes Percent Auto 15.5 % (18.3-44.2); Mean Corpuscular HGB Conc 32.9 g/dl (32-36); Mean Corpuscular Hemoglobin 29.5 pg (26-34); Mean Corpuscular Volume 89.6 fl (80-100); Mean Platelet Volume 8.3 fl (7.4-10.4); Monocytes Absolute Auto 0.6 K/mm3 (0.1-0.6); Monocytes Percent Auto 8.1 % (2.6-8.5); Neutrophils Absolute Auto 5.3 K/mm3 (1.3-6.7); Neutrophils Percent Auto 70.9 % (45.5-73.1); Platelet Count Result 149 k/mm3 (150-375); Red Blood Count 4.71 M/mm3 (4.2-5.4); Red Cell Distribution Width 12.7 % (11.5-14.5); White Blood Count 7.5 K/mm3 (4.5-10.0)
[2023-06-12 04:19] LABS: Alanine Aminotransferase 88 U/L (6-35); Albumin Level 4.1 g/dL (3.5-5.1); Alkaline Phosphatase 121 U/L (38-126); Anion Gap 9 mmol/L (8-16); Aspartate Amino Transferase 60 U/L (14-36); Bilirubin,Total 0.9 mg/dL (0.2-1.3); Blood Urea Nitrogen 17 mg/dL (7-17); Calcium 9.2 mg/dL (8.4-10.2); Carbon Dioxide 26 mmol/L (22-30); Chloride 106 mmol/L (98-107); Estimated CRCL calculation 59 ml/min; Estimated Glomerular Filt Rate > 60; Glucose 108 mg/dL (65-110); Potassium 3.1 mmol/L (3.4-5.0); Sodium 141 mmol/L (137-145)
[2023-06-12] MEDS: AMPICILLIN SULB 3 GM/NS 100 ML 3 GM/100 ML VIAL IVPB ×3 (04:55→14:09)
[2023-06-12] MEDS: VANCOMYCIN 1,250 MG/NS 250 ML 1,250 MG/250 ML BAG 166.67 MG IVPB (05:44)
[2023-06-12 07:39] LABS: Glucose Point of Care 90 mg/dl (65-105)
[2023-06-12 07:49] VITALS: BP 136/70; PULSE 81; RESP 20; TEMP 37.3; O2SAT 94
[2023-06-12 08:00] VITALS: PULSE 81; RESP 20; O2SAT 94
[2023-06-12] MEDS: PANTOPRAZOLE SODIUM IV 40 MG VIAL IV PUSH (08:14)
[2023-06-12] MEDS: ENOXAPARIN 40 MG/0.4 ML SYRINGE SUB-Q (08:14)
[2023-06-12] MEDS: FUROSEMIDE INJ 40 MG/4 ML VIAL IV PUSH (08:14)
[2023-06-12 12:07] LABS: Glucose Point of Care 103 mg/dl (65-105)
[2023-06-12 13:34] VITALS: O2SAT 95
--- NOTE | 2023-06-12 14:03 | PC.NURSE ---
pt remains 94-97% on room air
[2023-06-12 14:13] VITALS: O2SAT 98
--- NOTE | 2023-06-12 15:28 | PC.NURSE ---
Dr. Salinas stated pt is medical cleared for crisis
[2023-06-12 16:00] VITALS: BP 121/85; PULSE 89; RESP 18; TEMP 37.4; O2SAT 95
[2023-06-12 16:32] LABS: Glucose Point of Care 121 mg/dl (65-105)
--- NOTE | 2023-06-12 17:48 | PC.NURSE ---
pt discharged at this time, daughter Frances took pt, instructions given, left via w/c
--- NOTE | 2023-06-12 18:00 | PM.DS ---
DS: Admitting Diagnosis Discharge Date 06/12/23 Admitting Diagnosis unresponsive, suicide attempt DS: Discharge Diagnosis Discharge Diagnosis (1) Polysubstance overdose: Code(s): T50.901A - Poisoning by unspecified drugs, medicaments and biological substances, accidental (unintentional), initial encounter Status: Acute Assessment and Plan: Patient presented the ED after ingesting unknown amount of Xanax and trazodone. According the ER note he was trazodone 5003 and mg missing at her house. -patient was given adequate IV fluids -likely volume overloaded, maintenance IV fluids have been discontinued, patient given Lasix -will monitor urine output -continue to monitor closely -poison Control was notified from the ER 06/09: Patient is still somnolent, opens follows commands, nods to question but does not answer questions -06/09: repeat CT scan of the brain did not show any acute intracranial abnormalities This morning patient is awake, alert, oriented x3, does not remember which medications she took which she did tell me that she wanted to harm herself as she is undergoing a lot of stressors Patient may downgrade to medical status -crisis management to evaluate patient (2) Depression with anxiety: Code(s): F41.8 - Other specified anxiety disorders Status: Acute Assessment and Plan: Patient has a history of depression and anxiety -takes alprazolam, fluoxetine, gabapentin, trazodone (3) Suicidal behavior: Code(s): R45.89 - Other symptoms and signs involving emotional state Status: Acute Assessment and Plan: According to the son who is at the bedside states that the patient has been under lot of stress, taking care of her 90-year-old mother, patient's daughter had been diagnosed with breast cancer. Also her mother is in the hospital, all this is overwhelming for her. -Likely suicide behavior given the stressors that she is going through -when she is medically stable will have care coordination and crisis management evaluate the patient (4) Type 2 diabetes mellitus: Code(s): E11.9 - Type 2 diabetes mellitus without complications Status: Acute Assessment and Plan: Accu-Cheks and sliding scale insulin (5) Essential (primary) hypertension: Code(s): I10 - Essential (primary) hypertension Status: Acute Assessment and Plan: Currently blood pressure a low normal, will hold home antihypertensives (6) Mixed hyperlipidemia: Code(s): E78.2 - Mixed hyperlipidemia Status: Acute Assessment and Plan: Does not take any medications at home (7) Sepsis: Code(s): A41.9 - Sepsis, unspecified organism Status: Acute Assessment and Plan: Elevated WBC count, infiltrates on the chest x-ray, tachypnea, hypoxia -could be related to aspiration pneumonia -started on Unasyn Plan DVT prophylaxis: Lovenox Stress ulcer prophylaxis: Protonix Code Status: Full code DS: Summary Hospital Course Hospital Course: 67 year old female with past medical history of anxiety, asthma, depression, dyslipidemia, essential hypertension, GERD, kidney stone, suicide attempt in 2009 and 2022, type 2 diabetes, presented to the ED after taking an unknown amount of alprazolam and trazodone. Patient's family found patient to be lethargic and intermittently unresponsive. In the ER, she tested positive for benzo. She was admitted to the ICU for monitoring, IVF, poison control notified. According to the son who is at the bedside states that the patient has been under lot of stress, taking care of her 90-year-old mother, patient's daughter had been diagnosed with breast cancer.? Also her mother is in the hospital, all this is overwhelming for her. Patient was admitted to the ICU on Vapotherm for a few days until she was more alert. When she was awakened medically cleared, crisis evaluated the patient and she was discharged with a safety con
== END 2023-06-12 17:48 | disposition home or self-care (01) | DRG 917 ==
LOC: ANHED 22:08 → ANHICU 23:53
PROVIDERS: Internal Medicine; Admitting Provider General Practice; Emergency Provider Emergency Medicine; Visit Provider Student in an Organized Health Care Education/Training Program
DX: T42.4X2A Poisoning by benzodiazepines, intentional self-harm, initial encounter (principal); A41.9 Sepsis, unspecified organism; F41.8 Other specified anxiety disorders; E11.42 Type 2 diabetes mellitus with diabetic polyneuropathy; E78.2 Mixed hyperlipidemia; I10 Essential (primary) hypertension; J45.909 Unspecified asthma, uncomplicated; K21.9 Gastro-esophageal reflux disease without esophagitis; Z90.710 Acquired absence of both cervix and uterus; Z90.49 Acquired absence of other specified parts of digestive tract; Z90.5 Acquired absence of kidney; Z91.51 Personal history of suicidal behavior
CPT/HCPCS: 36415; 36600; 70450; 71045; 80053; 80202; 80307; 81003; 82140; 82805; 82948; 83735; 83880; 83930; 84100; 84443; 85025; 87040; 87635; 87641; 93005; 96360; 96361; 96374; 99285; A9270; C9113; G0378; J0295; J1650; J1940; J3370; J7030; J7120